=== PATIENT | female | born 1930 | race Caucasian/White ===

== ENCOUNTER 2017-09-18 21:44 | Emergency (ER) | payer MEDICARE, BC ==
[2017-09-18 22:40] LABS: #Basophils 0.1 thou/uL (0.0-0.2); #Eosinphils 0.2 thou/uL (0.0-0.7); #Lymphocytes 3.2 thou/uL (1.20-3.40); %Basophils 0.5 % (0.0-1.0); %Eosinophils 1.7 % (0.0-10.0); %Lymphocytes 30.7 % (21.0-51.0); %Monocytes 9.7 % (0.0-10.0); Hematocrit 34.8 % (36.0-47.0); Mean Platelet Volume 7.6 fL (7.4-10.4); Red Blood Cell (RBC) Count 3.49 mill/uL (4.20-5.40); White Blood Cell (WBC) Count 10.4 thou/uL (4.8-10.8)
[2017-09-18 22:47] LABS: Prothrombin Time 14.4 SEC (12.0-14.7)
[2017-09-18 22:55] LABS: Lactic Acid - Sepsis 1.1 mmol/L (0.5-2.2)
[2017-09-18 23:02] LABS: ALT (SGPT) 23 U/L (8-55); AST (SGOT) 21 U/L (5-34); Alkaline Phosphatase 105 U/L (40-150); Anion Gap 15 mmol/L (10-20); BUN (Urea Nitrogen) 27 mg/dL (9.8-20.1); Bilirubin, Total 0.3 mg/dL (0.2-1.2); Calc. Creatinine Clearance 0 mL/min (70-130); Calcium 9.1 mg/dL (7.8-10.44); Carbon Dioxide 23 mmol/L (23-31); Chloride 106 mmol/L (98-107); Estimated GFR-MDRD 38; Globulin 3.1 g/dL (2.4-3.5); Magnesium 2.1 mg/dL (1.6-2.6); Protein, Total 6.6 g/dL (6.0-8.3)
[2017-09-18 23:04] LABS: Troponin I 0.017 ng/mL (< 0.028)
--- NOTE | 2017-09-18 23:04 | CT ---
CT ABDOMEN AND PELVIS WITH CONTRAST STONE PROTOCOL: Date: 09/18/17 HISTORY: Gross hematuria. COMPARISON: None. FINDINGS: There are a few tree-in-bud opacities in the right middle lobe. No pericardial effusion. There is a calcified granuloma in hepatic segment 8. There is cholelithiasis. There appears to be a large mass along the dorsal posterior aspect of the urinary bladder. Forbes cath eter is in place. It is unclear if this is a mass or large clot. It measures 4.8 x 3.2 x 5.0 cm. Fole y catheter is in place. No hydronephrosis. 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 Distal ureteral evaluation is limited without contrast. Mild diverticular disease sigmoid colon without active inflammation. There are mild increased in number of left common iliac lymph nodes, although they are not increased in size per CT criteria. Moderate vascular calcifications of aorta. IMPRESSION: 1. Rather large mass or clot along the posterior wall of the urinary bladder measuring 4.8 x 3.2 x 5 .0 cm. Lack of IV contrast limits this evaluation. Direct visualization and urologic consultation rec ommended. 2. Cholelithiasis. 3. Tree-in-bud opacities right middle lobe concerning for pneumonia or aspiration. 4. 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 POS: [facility]
[2017-09-19 00:08] LABS: Bilirubin Negative (Negative); Blood, Urine Large (Negative); Glucose, Urine (Dipstick) Negative (Negative); Ketone, Urine Negative (Negative); Nitrite Negative (Negative); Protein, Urine (Dipstick) 100 mg/dL (Neg-Trace); Urobilinogen 0.2 mg/dL (0.2-1.0)
[2017-09-19 00:09] LABS: Bacteria/HPF 3+ HPF (None Seen); RBC/HPF GREATER THAN 50-TNTC HPF (0-3)
[2017-09-19 00:10] LABS: Hyaline Casts/LPF 0-3 HYALINE CAST LPF (0-3 Hyaline)
== END 2017-09-19 01:09 | disposition home or self-care (01) ==
LOC: ERS 21:44
DX: N32.89 Other specified disorders of bladder (principal); E03.9 Hypothyroidism, unspecified; E78.5 Hyperlipidemia, unspecified; I10 Essential (primary) hypertension; I25.10 Atherosclerotic heart disease of native coronary artery without angina pectoris
CPT/HCPCS: 36415; 74176; 82553; 83605; 83735; 84484; 87086

== ENCOUNTER 2017-10-07 08:02 | Outpatient (CLI) | payer MEDICARE, BC ==
[2017-10-07] MEDS ORDERED: Iopamidol 370 76% 100 ML VIAL ONE (09:00)
--- NOTE | 2017-10-07 10:51 | CT ---
ABDOMEN CT WITH AND WITHOUT CONTRAST PELVIC CT WITH AND WITHOUT CONTRAST: Date: 10/07/17 HISTORY: Gross hematuria. Possible bladder mass. COMPARISON: None. CORRELATION: Renal stone CT dated 09/18/17. TECHNIQUE: An abdomen and pelvis CT are performed with and without IV contrast. Coronal reformatted images are s ubmitted for interpretation. FINDINGS: ABDOMEN CT: Stable nodules and tree-in-bud opacities in the right middle lobe. Heart size is within normal limits . No significant pericardial fluid. The descending thoracic aorta and abdominal aorta have a normal c aliber. No periaortic fat stranding. Symmetric attenuation of the psoas muscles. CT evidence of cholelithiasis without CT evidence of cholecystitis. Note, there is abnormal enhanceme nt of the gallbladder wall with possible mucosal thickening. The possibility of a gallbladder wall ma ss cannot be excluded. Nonemergent gallbladder ultrasound is recommended. Calcified granulomas in the liver are noted. There are no hepatic masses. The spleen, pancreas, and a drenal glands have appropriate enhancement. No gastrohepatic, retrocrural, or periportal lymphadenopathy. No mesenteric mass, lymphadenopathy, free air, or free fluid. Limited evaluation of the alimentary canal due to lack of oral contrast. Multiple normal caliber smal l bowel loops. Ileocecal junction is normal. Normal caliber appendix. Fecal material in a nondistende d, nondilated colon. There is diverticulosis, without evidence of diverticulitis. Bilaterally, no hydronephrosis, nephrolithiasis, or perinephric fat stranding. Minimal scarring in th e left upper pole cortex. There is symmetric enhancement of the kidneys. Symmetric excretion of contr ast into the intra and extrarenal collecting system. 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 L eft and right ureters have an overall normal caliber. No hydroureter, periureteral fat stranding, or ureterolithiasis. On the delayed images, contrast partially opacifies the left and right ureters. PELVIC CT: No pelvic mass, lymphadenopathy, free air, or free fluid. Surgically absent uterus. Previously noted hyperdensity in the urinary bladder is not appreciated on the current exam, suggesti ng probable clot. There is mild mucosal thickening involving the right aspect of the urinary bladder. Cystoscopy is recommended. Small amount of contrast is noted in the dependent portion of the urinary bladder. There are no lytic or blastic lesion of the osseous structures. IMPRESSION: 1. No evidence of nephrolithiasis or obstructive uropathy. 2. Duplication of left renal pelvis. 3. No evidence of a mass in the urinary bladder. Previously noted hyperdensity likely represents blo od clot. There is mild mucosal thickening of the right aspect of the urinary bladder. Cystoscopy is r ecommended given patient's history. 4. Abnormal appearing gallbladder. Gallbladder ultrasound is recommended to exclude possible gallbla dder mass. CODE T. POS: [facility]
== END 2017-10-07 08:03 | disposition home or self-care (01) ==
LOC: SCSCT 08:02
PROVIDERS: ATTEND Urology
DX: N32.89 Other specified disorders of bladder (principal); R93.2 Abnormal findings on diagnostic imaging of liver and biliary tract
CPT/HCPCS: 74178

== ENCOUNTER 2017-10-27 11:51 | Outpatient (CLI) | payer MEDICARE, BC ==
[2017-10-27 13:35] LABS: Hematocrit 38.6 % (36.0-47.0); Mean Platelet Volume 8.2 fL (7.4-10.4); Red Blood Cell (RBC) Count 3.88 mill/uL (4.20-5.40)
[2017-10-27 13:47] LABS: PTT 29.7 SEC (22.9-36.1); Prothrombin Time 14.3 SEC (12.0-14.7)
[2017-10-27 13:50] LABS: Anion Gap 12 mmol/L (10-20); BUN (Urea Nitrogen) 26 mg/dL (9.8-20.1); Calc. Creatinine Clearance 0 mL/min (70-130); Calcium 10.3 mg/dL (7.8-10.44); Carbon Dioxide 29 mmol/L (23-31); Chloride 106 mmol/L (98-107); Estimated GFR-MDRD 52
[2017-10-27 13:57] LABS: Bilirubin Negative (Negative); Blood, Urine Small (Negative); Glucose, Urine (Dipstick) Negative (Negative); Ketone, Urine Negative (Negative); Nitrite Positive (Negative); Protein, Urine (Dipstick) Negative (Neg-Trace); Urobilinogen 0.2 mg/dL (0.2-1.0)
[2017-10-27 13:59] LABS: Bacteria/HPF Rare-Few HPF (None Seen); Hyaline Casts/LPF 0-3 HYALINE CAST LPF (0-3 Hyaline); Squamous Epithelial 0-3 HPF (0-3)
== END 2017-10-27 11:52 | disposition home or self-care (01) ==
LOC: LABBT 11:51
PROVIDERS: ATTEND Urology
DX: Z01.818 Encounter for other preprocedural examination (principal); N32.89 Other specified disorders of bladder
CPT/HCPCS: 80048; 81001; 85027; 85610; 85730; 87086

== ENCOUNTER 2017-11-03 09:24 | Day surgery (SDC) | payer MEDICARE, BC ==
[2017-10-27 12:14] VITALS: BMI 22.3
[2017-11-03] MEDS ORDERED: cefTRIAXone\\ROCEPHIN 1 GM, Syringe 0.4 ML in Sterile Water 9.6 ML SLOW IVP SCH (09:30)
[2017-11-03] MEDS ORDERED: Fentanyl 100 MCG/2 ML VIAL ONE (09:39)
--- NOTE | 2017-11-03 11:03 | OP ---
DATE OF SURGERY: 11/03/2017 SERVICE: Urology. SURGEON: Dr. Milan Saleh PREOPERATIVE DIAGNOSIS: Bladder lesions. POSTOPERATIVE DIAGNOSIS: Bladder lesions. PROCEDURE PERFORMED: Cystoscopy, bladder biopsies. INDICATIONS FOR PROCEDURE: Ms. Weaver is an 87-year-old white female who initially presented to me with gross hematuria. Cystoscopy demonstrated multiple small lesions within the bladder which was co ncerning for possible urothelial cancer. I had discussed options regarding her age including surveil adriana alone, hospice or bladder biopsies and she elected for bladder biopsies. Risks and benefits of the surgery were discussed and she agreed to proceed forward. DESCRIPTION OF PROCEDURE: After identification of armband and verification of consent, the patient w as brought back to the operating room where she underwent total intravenous anesthesia with anesthesi a monitoring. She was then placed in the dorsal lithotomy position and prepped and draped in the usu al sterile fashion. After appropriate timeout, a lubricated 22 Portuguese rigid cystoscope was introduce d per urethra into the bladder. A full cystoscopy was performed which demonstrated 5 lesions within the bladder. Each of these were biopsied at the posterior anterior right dome of the bladder, left l ateral and left anterior bladder sites. These were all sent for individual biopsies and each area fu lgurated to ensure that the entire lesion was removed and obliterated. Upon completion, repeat cysto scopy did not demonstrate any active bleeding even with the bladder partially decompressed. The cyst oscope was then removed after the bladder was emptied and the patient awakened and taken to PACU for recovery in stable condition. COMPLICATIONS: None. ESTIMATED BLOOD LOSS: Minimal. RETAINED TUBES AND DRAINS: None. SPECIMENS: Bladder biopsy x5. DISPOSITION: The patient will be discharged home and follow up with me in approximately a week for b iopsy results and postop check.
[2017-11-03] MEDS ORDERED: Phenazopyridine HCl 97.5 MG TABLET ONE (11:17)
[2017-11-03] MEDS ORDERED: PHENYLEPHRINE-NS 100 MCG/ML 10 ML SYRINGE ONE (13:33)
[2017-11-03] MEDS ORDERED: PROPOFOL 200 MG/20 ML VIAL ONE (13:33)
[2017-11-03] MEDS ORDERED: ePHEDrine/0.9% NaCl/PF SYRINGE 50 mg/10 ml ONE (13:33)
== END 2017-11-03 15:30 | disposition home or self-care (01) ==
LOC: SDC 09:24
PROVIDERS: ATTEND Urology
PROC: 0T5B8ZZ Destruction of Bladder, Via Natural or Artificial Opening Endoscopic (ICD-10-PCS; principal; 2017-11-03)
DX: N32.89 Other specified disorders of bladder (principal); N30.20 Other chronic cystitis without hematuria; I10 Essential (primary) hypertension; H40.9 Unspecified glaucoma; Z88.1 Allergy status to other antibiotic agents; Z79.82 Long term (current) use of aspirin; Z79.899 Other long term (current) drug therapy; Z90.89 Acquired absence of other organs; Z90.710 Acquired absence of both cervix and uterus; Z95.1 Presence of aortocoronary bypass graft
CPT/HCPCS: 51798; 52234; 88305; C1769; A4216; J0696; J2704; J3010

== ENCOUNTER 2017-11-05 10:34 | Emergency (ER) | payer MEDICARE, BC ==
[2017-11-05] MEDS ORDERED: Morphine 4 MG/ML VIAL ONE (11:57)
[2017-11-05] MEDS ORDERED: Ondansetron HCl/PF 4 MG/2 ML Vial ONE (12:07)
[2017-11-05 12:12] LABS: #Eosinphils 0.1 thou/uL (0.0-0.7); #Monocytes 0.7 thou/uL (0.11-0.59); #Neutrophils 7.2 thou/uL (1.40-6.50); %Basophils 0.4 % (0.0-1.0); %Eosinophils 0.8 % (0.0-10.0); %Lymphocytes 19.7 % (21.0-51.0); %Monocytes 6.5 % (0.0-10.0); %Neutrophils 72.5 % (42.0-75.0); Mean Corpuscular HGB CONC 33.5 g/dL (32.0-36.0); Mean Corpuscular Volume 98.6 fl (81.0-99.0); Mean Platelet Volume 8.1 fL (7.4-10.4); Platelet Count 229 thou/uL (130-400); RBC Distribution Width 12.3 % (11.5-14.5); Red Blood Cell (RBC) Count 3.63 mill/uL (4.20-5.40)
[2017-11-05 12:30] LABS: Anion Gap 14 mmol/L (10-20); BUN (Urea Nitrogen) 21 mg/dL (9.8-20.1); Calc. Creatinine Clearance 0 mL/min (70-130); Calcium 9.6 mg/dL (7.8-10.44); Carbon Dioxide 22 mmol/L (23-31); Chloride 105 mmol/L (98-107); Estimated GFR-MDRD 42; Glucose 140 mg/dL (83-110); Potassium 4.6 mmol/L (3.5-5.1); Sodium 136 mmol/L (136-145)
--- NOTE | 2017-11-05 13:19 | RAD ---
LEFT HUMERUS 2 VIEWS: INDICATION: Pain, fall, injury. FINDINGS: No fracture of the left humerus identified. There is osseous degenerative change of the imaged left shoulder and elbow. IMPRESSION: No acute fracture of the left humerus. POS: [facility]
--- NOTE | 2017-11-05 13:20 | RAD ---
FRONTAL VIEW CHEST: INDICATION: Fall with injury and pain. FINDINGS: The lungs are clear of consolidation. There is a slight degree of lateral blunting of the left costo phrenic sulcus. Cardiac silhouette is stable. No additional significant interval change. IMPRESSION: Grossly stable chest. POS: [facility]
[2017-11-05] MEDS ORDERED: Adacel (T-DAP) 0.5 ML VIAL ONE (13:23)
--- NOTE | 2017-11-05 13:37 | CT ---
CT HEAD WITHOUT CONTRAST: TECHNIQUE: Multiple axial tomograms were obtained through the head without IV enhancement. HISTORY: Ataxia. Comparison is made to a head CT dated 05/24/11. 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 This is unchanged in appearance. No evidence of acute infarct or hemorrhage. No mass effect. No interva l change noted. IMPRESSION: Stable findings from prior study with no evidence of acute process. POS: [facility]
--- NOTE | 2017-11-05 13:44 | CT ---
CT CERVICAL SPINE: TECHNIQUE: Multiple axial tomograms obtained through the cervical spine with multiplanar reconstruction. HISTORY: Fall with injury to neck. FINDINGS: Severe degenerative changes of the cervical spine noted. There is loss of disk space at C4-5, C5-6, and C6-7. There is anterior subluxation seen at C3-4. No evidence of acute fracture identified. 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 Foraminal stenosis is seen at multiple levels due to the degenerative change. IMPRESSION: Severe degenerative changes noted. 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 No evidence of acute fracture i dentified. POS: [facility]
--- NOTE | 2017-11-05 13:50 | CT ---
CT FACIAL BONES: TECHNIQUE: Multiple axial tomograms obtained through the facial bones with multiplanar reconstruction. HISTORY: Fall with injury to face. FINDINGS: Mild subcutaneous edema is seen over the right orbit and face. No hematoma identified. Nasal bones appear intact. Orbits appear intact. Zygoma are intact. Maxilla appears intact. 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 The mandible appears intact. IMPRESSION: No evidence of acute facial bone fracture. POS: [facility]
== END 2017-11-05 14:43 | disposition home or self-care (01) ==
LOC: ERS 10:34
DX: S01.111A Laceration without foreign body of right eyelid and periocular area, initial encounter (principal); M50.30 Other cervical disc degeneration, unspecified cervical region; E03.9 Hypothyroidism, unspecified; E78.5 Hyperlipidemia, unspecified; I10 Essential (primary) hypertension; R79.89 Other specified abnormal findings of blood chemistry; W18.30XA Fall on same level, unspecified, initial encounter
CPT/HCPCS: 12011; 36415; 70450; 70488; 71045; 72127; 80048; 84484; 85025; 90471; 90715; 93005; 96374; 96375; J2270; J2405

== ENCOUNTER 2017-11-24 18:19 | Inpatient (IN) | payer MEDICARE, BC ==
[~2017-11-24 18:19] MED LIST: ISOVUE-370 76%-LOCM 1 ML ONE
[2017-11-24] MEDS ORDERED: Morphine 4 MG/ML Carpuject ONE ×2 (18:47→20:27)
[2017-11-24] MEDS ORDERED: Ondansetron HCl/PF 4 MG/2 ML Vial ONE (18:52)
[2017-11-24 19:18] LABS: #Eosinphils 0.2 thou/uL (0.0-0.7); #Lymphocytes 2.7 thou/uL (1.20-3.40); #Monocytes 1.3 thou/uL (0.11-0.59); #Neutrophils 14.6 thou/uL (1.40-6.50); %Basophils 0.1 % (0.0-1.0); %Eosinophils 0.8 % (0.0-10.0); %Lymphocytes 14.2 % (21.0-51.0); %Monocytes 7.1 % (0.0-10.0); %Neutrophils 77.7 % (42.0-75.0); Hemoglobin 11.1 g/dL (12.0-16.0); Mean Corpuscular HGB CONC 33.4 g/dL (32.0-36.0); Mean Corpuscular Hemoglobin 32.6 pg (27.0-31.0); Mean Corpuscular Volume 97.8 fl (81.0-99.0); Mean Platelet Volume 7.8 fL (7.4-10.4); Platelet Count 252 thou/uL (130-400); RBC Distribution Width 12.4 % (11.5-14.5); Red Blood Cell (RBC) Count 3.42 mill/uL (4.20-5.40); White Blood Cell (WBC) Count 18.8 thou/uL (4.8-10.8)
[2017-11-24 19:34] LABS: PTT 29.4 SEC (22.9-36.1)
[2017-11-24 19:35] LABS: ALT (SGPT) 34 U/L (8-55); AST (SGOT) 31 U/L (5-34); Albumin 3.6 g/dL (3.4-4.8); Alkaline Phosphatase 78 U/L (40-150); Anion Gap 13 mmol/L (10-20); BUN (Urea Nitrogen) 26 mg/dL (9.8-20.1); Bilirubin, Total 0.3 mg/dL (0.2-1.2); CK (CPK) 118 U/L (29-168); Calc. Creatinine Clearance 0 mL/min (70-130); Calcium 9.4 mg/dL (7.8-10.44); Carbon Dioxide 23 mmol/L (23-31); Chloride 105 mmol/L (98-107); Estimated GFR-MDRD 45; Globulin 2.9 g/dL (2.4-3.5); Glucose 255 mg/dL (83-110); INR-International Normal Ratio 1.1; Lipase 16 U/L (8-78); Protein, Total 6.5 g/dL (6.0-8.3); Prothrombin Time 14.3 SEC (12.0-14.7); Sodium 137 mmol/L (136-145)
[2017-11-24 19:38] LABS: CKMB 3.7 ng/mL (0-6.6); Troponin I 0.018 ng/mL (< 0.028)
[2017-11-24 19:57] LABS: D-Dimer Test Greater than 20.00 *mcg/mL (0.27-0.43)
--- NOTE | 2017-11-24 20:03 | RAD ---
FRONTAL PELVIS RADIOGRAPH 11/24/17 PROVIDED CLINICAL HISTORY: Hip pain status post injury. FINDINGS: There is a displaced and angulated fracture of the intertrochanteric region of the right proximal fem ur. No additional fracture is evident. Vascular calcifications are seen. Degenerative changes involve the lower lumbar spine. Hip joint spaces appear preserved. Alignment appears otherwise anatomic. IMPRESSION: Comminuted, displaced intertrochanteric right proximal femoral fracture. POS: [facility]
--- NOTE | 2017-11-24 20:06 | RAD ---
PORTABLE CHEST 11/24/17 PROVIDED CLINICAL HISTORY: Syncope. FINDINGS: Comparison 11/05/17. The cardiac and mediastinal silhouette is within normal limits. Median sternotomy changes are noted. No focal consolidation evident. The supine nature of the study limits sensitivity for the detection o f pleural fluid and pneumothorax without gross evidence for such. Remote left sided rib fracture is s een. IMPRESSION: No evidence for an acute cardiopulmonary process with limitations as above. POS: [facility]
[2017-11-24] MEDS ORDERED: Bisacodyl 10 MG SUPP PR PRN (20:22)
[2017-11-24] MEDS ORDERED: traMADol HCl 50 MG TAB PO PRN (20:22)
[2017-11-24] MEDS ORDERED: Fleet Enema 133 ML BOT PR PRN (20:22)
[2017-11-24] MEDS ORDERED: Milk Of Magnesia 30 ML UDCUP PO PRN (20:22)
[2017-11-24] MEDS ORDERED: Dextrose 50% Abboject 50 ML SYRINGE SLOW IVP PRN (20:22)
[2017-11-24] MEDS ORDERED: Dextrose 5% in Water 1,000 ML IV SCH (20:30)
--- NOTE | 2017-11-24 20:56 | RAD ---
RIGHT HIP RADIOGRAPHS TWO VIEWS 11/24/17 PROVIDED CLINICAL HISTORY: Right hip pain status post injury. FINDINGS: There is a comminuted intertrochanteric right proximal femoral fracture with fracture fragment overri ding apex lateral angulation at the fracture site. No additional fracture is evident. Vascular calcif ications are seen. Degenerative changes involve the lumbar spine. The right hip joint space appears m aintained. IMPRESSION: Comminuted displaced right proximal femoral intertrochanteric fracture. POS: [facility]
--- NOTE | 2017-11-24 21:24 | CT ---
CT BRAIN 11/24/17 PROVIDED CLINICAL HISTORY: Syncope. FINDINGS: Comparison 11/05/17. The ventricular system is unchanged in size and morphology. There is no evidence for intracranial hem orrhage or mass effect. Encephalomalacia in the right occipital region is unchanged as compared with prior. The extracranial soft tissues and osseous structures demonstrate no acute findings. IMPRESSION: No evidence for intracranial hemorrhage or mass effect. POS: [facility]
--- NOTE | 2017-11-24 21:37 | HP ---
ATTENDING PHYSICIAN: Dr. Mckinney. CONSULTING PHYSICIAN: Dr. Mendoza. CHIEF COMPLAINT: Evaluation status post fall. HISTORY OF PRESENT ILLNESS: This is an 87-year-old female with presentation of fall. Patient report ed that she fell after she was bent over getting some potatoes turned around to go to the washroom an d then fell. That was the last thing she does recall. She does hit her head on the draw. She does report right hip and right lower extremity pain. She denied any chest pain, headache, dizziness, elliot rtness of breath prior to the fall and/or after the fall. She denies any fevers or chills recently. PAST MEDICAL HISTORY: Includes significant for coronary artery disease, hypertension, hypothyroidism , hyperlipidemia. PAST SURGICAL HISTORY: Includes coronary artery bypass 17 years ago, tonsillectomy, hysterectomy, in and then recently in October, had a bladder surgery of some sort, they were unable to describe. No psychiatric history. SOCIAL HISTORY: Denies any alcohol use, drug use or smoking history or tobacco use. She does live a t home with family. CURRENT MEDICATIONS: Coreg 12.5 two tabs p.o. every day, diclofenac 75 mg p.o. b.i.d., aspirin 325 p .o. daily, lisinopril HCTZ 20/25 mg 1 tab b.i.d., Pravachol 40 mg p.o. at bedtime, Tirosint 1 tab p.o . every day 112 mcg, vitamin C and E daily, Levofloxacin 750 p.o. daily, MiraLax 17 grams at bedtime by mouth. ALLERGIES: No known drug allergies. REVIEW OF SYSTEMS: All 10 systems were reviewed otherwise stated in HPI were negative. PHYSICAL EXAMINATION: VITAL SIGNS: At this time, blood pressure 122/64, heart rate of 53, respiratory rate 18, temperature 97.7, O2 sat of 99% on room air. EKG shows sinus bradycardia. GENERAL: No acute distress at this time. Atraumatic, normocephalic. HEENT: Pupils are equal, round, reactive to light. No JVD, no masses. Trachea is midline. She stauffer s have some periorbital ecchymosis on the right eye. RESPIRATORY: Clear bilaterally via auscultation. CARDIOVASCULAR: S1, S2, regular rate and rhythm. ABDOMEN: Soft, nontender, nondistended. Pelvis tender on the right side than the left. Positive pu lses bilaterally. No edema noted. Good cap refill. She is able to move lower extremities, left gre ater than right secondary to pain. ASSESSMENT: 1. Status post fall. 2. Possible syncopal episode. 3. Right intertrochanteric fracture. 4. Acute traumatic pain. The plan will be admission to the surgical floor well consultation for Ort hopedics also, possibly consultation for Cardiology, for workup of possible syncopal episode. Her ca rdiologist is Dr. Dumont. We will optimize her pain management and IV and p.o. analgesics. She will h ave gastritis DVT prophylaxis when appropriate. Continue IV fluids, n.p.o. after midnight. We will discuss surgical options tomorrow with orthopedics as well as surgical optimization for Cardiology. The above patient was discussed with Dr. Mckinney at the time of dictation and agrees with the above pl an.
[2017-11-24 21:49] LABS: Bilirubin Negative (Negative); Blood, Urine Negative (Negative); Clarity CLEAR (Clear); Glucose, Urine (Dipstick) Negative (Negative); Leukocyte Small (Negative); Nitrite Negative (Negative); Protein, Urine (Dipstick) Negative (Neg-Trace); Specific Gravity, Urine 1.015 (1.002-1.036); Urobilinogen 0.2 mg/dL (0.2-1.0); pH, Urine 6.5 (5.0-9.0)
[2017-11-24 21:50] LABS: Bacteria/HPF None Seen HPF (None Seen); Hyaline Casts/LPF 0-3 HYALINE CAST LPF (0-3 Hyaline); Pathc Cast-AUWi Flag 0.54 (0-2.49); RBC/HPF 0-3 HPF (0-3); Squamous Epithelial 0-3 HPF (0-3)
--- NOTE | 2017-11-24 22:11 | CT ---
CT PULMONARY ANGIOGRAM WITH IV CONTRAST AND 3D MIP RECONSTRUCTIONS 11/24/17 PROVIDED CLINICAL HISTORY: Syncope. FINDINGS: Comparison 07/11/14. There is no evidence for central or segmental pulmonary embolus. Median sternotomy changes and vascul ar calcifications are again seen. Lungs appear free of significant opacity. No pleural fluid or pneum othorax apparent. The airway appears patent and of normal caliber. The visualized portions of the upp er abdomen demonstrate no acute findings. Gallstones are noted. The osseous structures demonstrate no concerning osteoblastic or osteolytic lesions. IMPRESSION: No evidence for central or segmental pulmonary embolus. POS: [facility]
[2017-11-24] MEDS ORDERED: Morphine 5 MG/ML SYRINGE SLOW IVP PRN ×2 (22:18)
[2017-11-24] MEDS: D5 0.9% NS w/ 20 mEq KCl 1,000 ML IV SCH (22:23)
[2017-11-24] MEDS ORDERED: hydrALAZINE 20 MG/ML VIAL SLOW IVP PRN (22:43)
[2017-11-24 22:51] VITALS: BMI 23.5
[2017-11-25] MEDS: Acetaminophen 1,000 MG in Premix Bag 1 BAG IVPB SCH ×5 (00:29→23:52)
[2017-11-25] MEDS: Levothyroxine Sodium 112 MCG TAB PO SCH (06:00)
[2017-11-25] MEDS: Carvedilol 6.25 MG TAB PO SCH ×2 (06:00→20:38)
[2017-11-25] MEDS: Insulin Regular 300 UNITS/3 ML VIAL SC PRN ×3 (06:37→20:43)
--- NOTE | 2017-11-25 08:27 | CON ---
DATE OF CONSULTATION: 11/25/2017 HISTORY OF PRESENT ILLNESS: We were asked to see the patient by Trauma in the emergency room. The nani morrell is a fairly healthy 87-year-old female who was brought into the emergency room secondary to fa ll. She denies any loss of consciousness. She states she was out in her potato patch, getting some potatoes for dinner. She is not sure if she josephine up too quick, turn around stumbled her way, but she fell and was unable to walk. She did hit her head on the right side and has a black eye, but no vis ual changes. She does have some chronic numbness and tingling in her hands and feet that has been wo rked up, but unsure what the cause of this is. Denies headache, dizziness, shortness of breath, any chest pain. No other complaints other than the right hip pain. PAST MEDICAL HISTORY: Positive for coronary artery disease, hypertension, hypothyroidism, hyperlipid emia. PAST SURGICAL HISTORY: Bypass in 1998, tonsils, hysterectomy, had a bladder surgery 3 weeks ago. PSYCHIATRIC HISTORY: Denies any depression or any other problems. SOCIAL HISTORY: Lives at home with her 2 sons. No alcohol or nicotine use. MEDICATIONS: Aspirin, MiraLax, Ocuvite Lutein, carvedilol, diclofenac, levothyroxine, lisinopril, hy drochlorothiazide, pravastatin. ALLERGIES: LEVOFLOXACIN. REVIEW OF SYSTEMS: Denies any chest pain or shortness of breath. No bowel or bladder issues or comp laints at this time. Her only major complaint currently is numbness and tingling to the hands and fe et and right hip pain. Rest of review of systems is negative. PHYSICAL EXAMINATION: GENERAL: Well-nourished, pleasant female, son is at bedside. Speech clear, fluent, oriented x3. HEENT: Normal exam. Face is symmetric. She does have a black eye on the right side, but vision is intact. NECK: Supple, trachea midline. EXTREMITIES: Upper extremities, she moves both of these well. Normal bulk and tone. There are mult iple areas of bruising, which the patient states is normal. Right lower extremity has some tendernes s to palpation over the right hip and over groin, and some swelling, but overall not miserable pain a s long as we do not move her. Right lower extremity is little bit shortened. Left lower extremity, moving well. ASSESSMENT: Right intertrochanteric fracture. PLAN: I spoke with patient and son if we can get her cleared from a Trauma and Cardiovascular standp oint, we will get her surgery done. We will plan on doing a TFN and the procedure has been explained to the patient. All the risks and benefits have been discussed and the patient and son are amenable to go forth with surgery. She will probably need some case management for some postoperative home c are versus rehab or skilled, we will get that set up. The patient's and son's questions have been an swered and trying to get that surgery set up for today. This is Roc Julio PA-C dictating for Dr. Saran Mendoza.
[2017-11-25] MEDS ORDERED: CEFAZOLIN/Water 2 GM/20 ML SYRINGE ONE (09:25)
[2017-11-25] MEDS ORDERED: Fentanyl 100 MCG/2 ML VIAL ONE (09:38)
[2017-11-25] MEDS ORDERED: Ondansetron HCl/PF 4 MG/2 ML Vial ONE ×3 (09:39→14:17)
[2017-11-25] MEDS ORDERED: ePHEDrine/0.9% NaCl/PF SYRINGE 50 mg/10 ml ONE ×2 (10:19→14:17)
[2017-11-25] MEDS ORDERED: Meperidine HCl/PF 25 MG/ML VIAL SLOW IVP PRN (10:20)
[2017-11-25] MEDS ORDERED: HYDROmorphone 2 MG/ML VIAL SLOW IVP PRN (10:20)
[2017-11-25] MEDS ORDERED: Promethazine HCl 25 MG/ML VIAL IM/IV PRN (10:20)
[2017-11-25] MEDS ORDERED: Ondansetron HCl/PF 4 MG/2 ML Vial IVP PRN (10:20)
[2017-11-25] MEDS: Lisinopril/Hydrochlorothiazide 20/25 mg Tablet PO SCH ×2 (11:33→20:38)
[2017-11-25] MEDS: D5 0.9% NS w/ 20 mEq KCl 1,000 ML IV SCH ×2 (11:34→15:14)
--- NOTE | 2017-11-25 12:04 | OP ---
DATE OF PROCEDURE: 11/25/2017 OPERATION: Right femur intramedullary nail. PREOPERATIVE DIAGNOSIS: Right intertrochanteric femur fracture. POSTOPERATIVE DIAGNOSIS: Right intertrochanteric femur fracture. COMPLICATIONS: None. ESTIMATED BLOOD LOSS: 100 mL. SURGEON: Vinny Epstein M.D. PRESIDENTIAL SUPPORT SPECIALIST: Kendall Fenton PA-C. IMPLANTS: A Synthes short trochanteric nail size 11 mm. INDICATIONS: Ms. Weaver is an 87-year-old female who fell. She sustained a fracture of the right p roximal femur. She was indicated for intramedullary nail fixation to restore anatomic alignment and promote healing. Risks were reviewed. She elected to proceed with the operation. The goal of surge ry is to promote early mobilization. DESCRIPTION OF PROCEDURE: Ms. Weaver was identified in the preoperative holding area. Her correct extremity was marked. She was carried to the operating room. She was positioned supine. General an esthesia was induced. Intravenous antibiotics were administered. We performed a multidisciplinary t polo out. The right lower extremity was prepped and draped in sterile fashion. At this point, we intraoperatively evaluated the femur with x-ray. We obtained an anatomic reduction by rotating and pulling traction on the femur. At this point, we inserted a guidewire at the tip of the trochanter proximally. We imaged this with x-ray. We then over reamed the guidewire. At this point, we placed a ball tip guidewire and then overreamed the shaft distally with an 11.5 mm reamer. We then inserted our 11 mm trochanteric nail. At this point, we placed a helical blade in the cente r-center position of the femoral head. We then placed a distal cross lock screw using our guide. We took final images. We thoroughly irrigated with copious lavage. We then closed with 0 Vicryl sutur e, 2-0 Vicryl suture and reece for the skin. A sterile dressing was applied at this point. The kimberley clayton was taken to the recovery room without complication.
--- NOTE | 2017-11-25 12:25 | RAD ---
RIGHT HIP 2 VIEWS: Date: 11/25/17 HISTORY: 87-year-old female status post right hip nail surgery. FINDINGS: Three portable fluoroscopic spot views are presented for interpretation. Right hip nail placed with i ntramedullary component, with considerable improvement in position and alignment from the prereductio n study of 11/24/17. IMPRESSION: Right hip nail placed stabilizing comminuted intertrochanteric and subtrochanteric fracture of the ri ght femur with marked improvement in position and alignment. POS: [facility]
[2017-11-25] MEDS ORDERED: Ketorolac Tromethamine 30 MG/ML VIAL ONE (14:17)
[2017-11-25] MEDS ORDERED: Succinylcholine Chloride 20 MG/ML 10 ml SYRINGE FS ONE (14:17)
[2017-11-25] MEDS ORDERED: Dexamethasone 20 MG/5 ML VIAL ONE (14:17)
[2017-11-25] MEDS ORDERED: Propofol 200 MG/20 ML VIAL ONE (14:17)
[2017-11-25] MEDS ORDERED: Lidocaine 1% PF 5 ML VIAL ONE (14:17)
[2017-11-25] MEDS ORDERED: PHENYLEPHRINE-NS 100 MCG/ML 10 ML SYRINGE ONE (14:17)
[2017-11-25] MEDS: traMADol HCl 50 MG TAB PO PRN (15:04)
[2017-11-25] MEDS: CEFAZOLIN/Water 2 GM/20 ML SYRINGE SLOW IVP SCH (18:49)
--- NOTE | 2017-11-25 18:59 | PRG-2 ---
DATE OF SERVICE: 11/25/2017 SUBJECTIVE: The patient is an 87-year-old lady who had a ground level fall last night. She was brou ght to the hospital, where a right femur fracture was identified. She underwent right femur intramed ullary nail today. She is now seen on the surgical floor postoperatively. She states pain is well c ontrolled. She has no complaints at this time. OBJECTIVE: VITAL SIGNS: Temperature 98.2, pulse 68, blood pressure 103/56, respirations 19 and O2 sat 98%. GENERAL: Elderly female in no acute distress. HEENT: Periorbital ecchymosis, right. PULMONARY: Bilateral breath sounds clear. Respirations even unlabored. CARDIOVASCULAR: Regular rate and rhythm. ABDOMEN: Soft, nontender and nondistended. EXTREMITIES: Right hip surgical dressing in place. Clean, dry and intact. Moves all extremities. Cap refill brisk. Neurovascularly intact. NEUROLOGIC: GCS of 15. Awake, alert, oriented x3. ASSESSMENT: 1. Status post ground level fall. 2. Right intertrochanteric femur fracture. 3. Status post ORIF of right intertrochanteric femur fracture. PLAN: 1. Continue antibiotics as ordered by Orthopedic Surgery. 2. Regular diet. 3. Lovenox for DVT prophylaxis. 4. Scheduled IV Tylenol, plus oral analgesia plus morphine for breakthrough pain tonight. 5. PT, OT evaluation. 6. Case management for discharge planning. The patient was seen and examined with Dr. Honeycutt who agr ees with the assessment and plan.
[2017-11-25] MEDS ORDERED: Sodium Chloride 0.9% 500 ML IV SCH (20:00)
--- NOTE | 2017-11-25 20:25 | PRG ---
DATE OF SERVICE: 11/25/2017 SUBJECTIVE: This is an 87-year-old female status post fall, postoperative day #0 from ORIF of the ri ght hip. No other complaints at this time. Pain is controlled. OBJECTIVE: VITAL SIGNS: Stable and reviewed. Physical exam is unchanged from this morning's exam. ASSESSMENT AND PLAN: 87-year-old female status post open reduction internal fixation of the right hi p. Continue care plan as stated in the daily progress note. Continue to monitor. Discharge disposi tion pending.
[2017-11-25] MEDS: Pravastatin Sodium 40 MG TAB PO SCH (20:49)
[2017-11-25] MEDS ORDERED: Diclofenac Sodium 25 mg Tablet PO SCH (23:00)
[2017-11-26] MEDS: CEFAZOLIN/Water 2 GM/20 ML SYRINGE SLOW IVP SCH ×3 (01:57→17:36)
[2017-11-26 04:59] LABS: Anion Gap 12 mmol/L (10-20); BUN (Urea Nitrogen) 30 mg/dL (9.8-20.1); Calc. Creatinine Clearance 30 mL/min (70-130); Calcium 8.1 mg/dL (7.8-10.44); Carbon Dioxide 24 mmol/L (23-31); Chloride 109 mmol/L (98-107); Estimated GFR-MDRD 41; Glucose 132 mg/dL (83-110); Phosphorus 3.4 mg/dL (2.3-4.7); Potassium 4.9 mmol/L (3.5-5.1); Sodium 140 mmol/L (136-145)
[2017-11-26] MEDS: Levothyroxine Sodium 112 MCG TAB PO SCH (05:14)
[2017-11-26 05:52] LABS: Hemoglobin 6.6 g/dL (12.0-16.0); Mean Corpuscular HGB CONC 33.1 g/dL (32.0-36.0); Mean Corpuscular Hemoglobin 33.3 pg (27.0-31.0); Mean Platelet Volume 7.6 fL (7.4-10.4); Platelet Count 149 thou/uL (130-400); RBC Distribution Width 12.9 % (11.5-14.5); Red Blood Cell (RBC) Count 1.99 mill/uL (4.20-5.40); White Blood Cell (WBC) Count 16.9 thou/uL (4.8-10.8)
[2017-11-26 06:33] LABS: Band 4 % (5-11); Lymphocytes 18 % (21-51); MDiff Complete? YES; Macrocytosis SLIGHT = 6-15 cells (100X) (0-5/hpf); Metamyelocyte 3 % (0-0); Monocytes 9 % (0-10); Neutrophil 66 % (42-75); PLT Morphology Comment Appears Adequate; Polychromasia SLIGHT = 2-3 cells (100X) (0-2/hpf)
[2017-11-26] MEDS: Insulin Regular 300 UNITS/3 ML VIAL SC PRN ×3 (06:39→21:21)
[2017-11-26 07:01] LABS: Hemoglobin 6.7 g/dL (12.0-16.0); Platelet Count 157 thou/uL (130-400)
--- NOTE | 2017-11-26 09:51 | ULT ---
BILATERAL LOWER EXTREMITY VENOUS DOPPLER: Date: 11/26/17 HISTORY: Elevated D-Dimer. COMPARISON: None. FINDINGS: Real-time Hernandez scale and color Doppler with spectral analysis of the bilateral lower extremity venous system was performed. Bilateral common femoral, femoral, proximal portions of greater saphenous and deep femoral veins, as well as the popliteal and posterior tibial veins were interrogated. Normal flow, augmentation, and compression. No deep venous thrombosis. IMPRESSION: No deep venous thrombosis. POS: [facility]
[2017-11-26] MEDS: Diclofenac Sodium 25 mg Tablet PO SCH ×3 (10:04→20:07)
[2017-11-26] MEDS: Lisinopril/Hydrochlorothiazide 20/25 mg Tablet PO SCH ×3 (10:45→20:09)
[2017-11-26] MEDS: Carvedilol 6.25 MG TAB PO SCH ×3 (10:45→20:07)
[2017-11-26] MEDS: Acetaminophen 500 MG TAB PO SCH ×4 (12:45→23:29)
--- NOTE | 2017-11-26 13:52 | PRG ---
DATE OF SERVICE: 11/26/2017 ATTENDING PHYSICIAN: Jose Honeycutt DO. SUBJECTIVE: The patient is an 87-year-old lady status post ground level fall. She is postoperative day #1 status post right femur intramedullary nail. This morning, she was noted to have decreased he moglobin. Hemoglobin had dropped from 11.1 to 6.6 postoperatively. She has no complaints of pain. She will be transfused 1 unit PRBCs today. OBJECTIVE: VITAL SIGNS: Temperature 98.3, pulse 80, blood pressure 117/51, respirations 18, O2 sat 97% room air . GENERAL: Elderly female, in no acute distress. HEENT: Periorbital ecchymosis, right. PULMONARY: Bilateral breath sounds clear. RESPIRATORY: Even unlabored. CARDIOVASCULAR: Regular rate and rhythm. Heart sounds normal. ABDOMEN: Soft, nontender, nondistended. Bowel sounds normal. EXTREMITIES: Right hip surgical dressing in place, clean, dry and intact. Moves all extremities. C ap refill brisk. Neurovascularly intact. NEUROLOGIC: GCS 15. Awake, alert, and oriented x3. ASSESSMENT: 1. Status post ground level fall. 2. Right intertrochanteric femur fracture. 3. Status post open reduction internal fixation right intertrochanteric femur fracture. 4. Acute blood loss anemia, postoperative. PLAN: 1. Continue antibiotics as ordered by Orthopedic Surgery. 2. Transfuse 1 unit PRBCs today. 3. D-dimer elevated on admission. CTA PE negative. Bilateral lower extremity duplex study is negat oswaldo. 4. Transition to oral Tylenol. 5. PT/OT evaluation and treatment. 6. Case management for discharge planning. The patient was reviewed with Dr. Honeycutt, who agrees with the assessment and plan.
--- NOTE | 2017-11-26 15:15 | EKG ---
Test Reason : FALL Blood Pressure : / mmHG Vent. Rate : 050 BPM Atrial Rate : 050 BPM P-R Int : 208 ms QRS Dur : 084 ms QT Int : 480 ms P-R-T Axes : 114 001 058 degrees QTc Int : 437 ms Sinus bradycardia Otherwise normal ECG Confirmed by JYOTSNA WELSH, KRYSTINA ([id number]), commissioning editor LEXUS SEALS ([id number]) on 11/26/2017 3:15:00 PM Referred By: JYOTSNA Confirmed By:KRYSTINA GOYAL MD
[2017-11-26] MEDS: traMADol HCl 50 MG TAB PO PRN (15:36)
[2017-11-26] MEDS: Morphine 2 MG/ML SYRINGE SLOW IVP PRN (20:06)
[2017-11-26] MEDS: Enoxaparin Sodium 40 MG/0.4 ML SYRINGE SC SCH (20:06)
[2017-11-26] MEDS: Pravastatin Sodium 40 MG TAB PO SCH (20:07)
--- NOTE | 2017-11-26 21:07 | PRG ---
DATE OF SERVICE: 11/26/2017 SUBJECTIVE: This is an 87-year-old female status post fall postop day #1 from ORIF of hip. She init ially had no new complaints. The pain is controlled. She is doing well. OBJECTIVE: VITAL SIGNS: The patient is stable. Physical exam is unchanged from this morning. ASSESSMENT AND PLAN: An 87-year-old female. Continue plan as documented in daily progress note. Co ntinue to monitor. Discharge pending is pending.
[2017-11-27] MEDS: Morphine 2 MG/ML SYRINGE SLOW IVP PRN (01:23)
[2017-11-27] MEDS: CEFAZOLIN/Water 2 GM/20 ML SYRINGE SLOW IVP SCH ×2 (01:23→09:47)
[2017-11-27 04:20] LABS: #Lymphocytes 2.9 thou/uL (1.20-3.40); #Monocytes 1.5 thou/uL (0.11-0.59); #Neutrophils 7.4 thou/uL (1.40-6.50); %Basophils 0.1 % (0.0-1.0); %Eosinophils 0.3 % (0.0-10.0); %Lymphocytes 24.2 % (21.0-51.0); %Monocytes 12.8 % (0.0-10.0); %Neutrophils 62.6 % (42.0-75.0); Hemoglobin 7.3 g/dL (12.0-16.0); Mean Corpuscular HGB CONC 33.8 g/dL (32.0-36.0); Mean Corpuscular Hemoglobin 32.8 pg (27.0-31.0); Mean Corpuscular Volume 97.2 fl (81.0-99.0); Mean Platelet Volume 8.7 fL (7.4-10.4); Platelet Count 115 thou/uL (130-400); RBC Distribution Width 13.5 % (11.5-14.5); Red Blood Cell (RBC) Count 2.23 mill/uL (4.20-5.40); White Blood Cell (WBC) Count 11.8 thou/uL (4.8-10.8)
[2017-11-27 04:35] LABS: Anion Gap 10 mmol/L (10-20); BUN (Urea Nitrogen) 29 mg/dL (9.8-20.1); Calc. Creatinine Clearance 40 mL/min (70-130); Calcium 7.7 mg/dL (7.8-10.44); Carbon Dioxide 25 mmol/L (23-31); Chloride 108 mmol/L (98-107); Estimated GFR-MDRD 57; Glucose 102 mg/dL (83-110); Magnesium 1.8 mg/dL (1.6-2.6); Phosphorus 2.8 mg/dL (2.3-4.7); Potassium 4.2 mmol/L (3.5-5.1); Sodium 139 mmol/L (136-145)
[2017-11-27] MEDS: Acetaminophen 500 MG TAB PO SCH ×3 (05:59→18:40)
[2017-11-27] MEDS: Levothyroxine Sodium 112 MCG TAB PO SCH (06:00)
[2017-11-27] MEDS: Diclofenac Sodium 25 mg Tablet PO SCH ×2 (08:31→22:11)
[2017-11-27] MEDS: Carvedilol 6.25 MG TAB PO SCH ×2 (08:32→22:11)
[2017-11-27] MEDS: Lisinopril/Hydrochlorothiazide 20/25 mg Tablet PO SCH ×2 (09:29→22:11)
[2017-11-27] MEDS: Insulin Regular 300 UNITS/3 ML VIAL SC PRN ×2 (11:34→16:45)
--- NOTE | 2017-11-27 16:53 | PRG ---
DATE OF SERVICE: 11/27/2017 ATTENDING PHYSICIAN: Jose Honeycutt D.O. SUBJECTIVE: The patient is an 87-year-old lady status post ground level fall. She is postoperative day #2 status post right femur intramedullary nail. She received 1 unit of PRBCs yesterday for a niko p in her hemoglobin. This morning, her hemoglobin is 7.3 up from 6.7 yesterday. She has no complain ts of pain. OBJECTIVE: VITAL SIGNS: Temperature 98.0, pulse 65, respirations 20, O2 sat 98% on room air, blood pressure 122 /48. GENERAL: Elderly female sitting up in a chair, in no acute distress. HEENT: Right periorbital ecchymosis. PULMONARY: Bilateral breath sounds clear. No respiratory distress. CARDIOVASCULAR: Regular rate and rhythm. Heart sounds normal. ABDOMEN: Soft, nontender, nondistended. Bowel sounds normal. EXTREMITIES: Right hip surgical dressing in place. Clean, dry, and intact. Moves all extremities. Cap refill brisk. Neurovascularly intact. NEUROLOGIC: GCS of 15. Awake, alert, oriented x3. ASSESSMENT: 1. Status post ground level fall. 2. Right intertrochanteric femur fracture. 3. Status post open reduction and internal fixation of right intertrochanteric femur fracture. 4. Acute blood loss anemia, postoperative. PLAN: 1. Continue antibiotics as ordered by Orthopedic Surgery. 2. Begin iron, vitamin C daily. 3. Monitor H and H and transfuse as indicated. 4. Continue PT, OT evaluation and treatment. 5. Case management for discharge planning. Anticipate patient will be discharged to care home facility or inpatient rehabilitation. The patient was reviewed with Dr. Honeycutt who agrees with above plan and treatment.
[2017-11-27] MEDS: Ferrous Sulfate 325 MG TAB PO SCH (17:02)
[2017-11-27] MEDS: Pravastatin Sodium 40 MG TAB PO SCH (22:10)
[2017-11-27] MEDS: traMADol HCl 50 MG TAB PO PRN (22:10)
[2017-11-27] MEDS: Enoxaparin Sodium 40 MG/0.4 ML SYRINGE SC SCH (22:12)
--- NOTE | 2017-11-27 23:04 | PRG ---
DATE OF SERVICE: 11/27/2017 SUBJECTIVE: This is an 87-year-old female status post fall postop day #2 from ORIF of hip. She init ially had no new complaints. Patient's pain is well controlled. She is doing well. We will continu e to monitor hemoglobin. OBJECTIVE: VITAL SIGNS: At this time, stable and reviewed. Physical exam unremarkable. ASSESSMENT AND PLAN: Continue care plans as noted in the daily progress note. Continue to monitor. Continue care plan, discharge disposition is pending.
[2017-11-28] MEDS: Acetaminophen 500 MG TAB PO SCH ×4 (00:04→17:54)
[2017-11-28] MEDS: Levothyroxine Sodium 112 MCG TAB PO SCH (07:01)
[2017-11-28 07:25] LABS: Hemoglobin 7.3 g/dL (12.0-16.0); Mean Corpuscular Hemoglobin 32.7 pg (27.0-31.0); Mean Corpuscular Volume 99.2 fl (81.0-99.0); Mean Platelet Volume 8.1 fL (7.4-10.4); Platelet Count 139 thou/uL (130-400); RBC Distribution Width 13.3 % (11.5-14.5); Red Blood Cell (RBC) Count 2.22 mill/uL (4.20-5.40); White Blood Cell (WBC) Count 10.9 thou/uL (4.8-10.8)
[2017-11-28 07:42] LABS: Anion Gap 10 mmol/L (10-20); BUN (Urea Nitrogen) 35 mg/dL (9.8-20.1); Calc. Creatinine Clearance 33 mL/min (70-130); Carbon Dioxide 24 mmol/L (23-31); Chloride 108 mmol/L (98-107); Estimated GFR-MDRD 45; Glucose 97 mg/dL (83-110); Magnesium 1.9 mg/dL (1.6-2.6); Phosphorus 2.8 mg/dL (2.3-4.7); Sodium 138 mmol/L (136-145)
[2017-11-28 07:55] LABS: Band 12 % (5-11); Eosinophils 1 % (0-10); Lymphocytes 23 % (21-51); MDiff Complete? YES; Monocytes 11 % (0-10); Neutrophil 53 % (42-75); PLT Morphology Comment Appears Adequate; Polychromasia SLIGHT = 2-3 cells (100X) (0-2/hpf)
[2017-11-28] MEDS: Ferrous Sulfate 325 MG TAB PO SCH ×2 (08:27→17:54)
[2017-11-28] MEDS: Carvedilol 6.25 MG TAB PO SCH (08:27)
[2017-11-28] MEDS: Lisinopril/Hydrochlorothiazide 20/25 mg Tablet PO SCH (08:28)
[2017-11-28] MEDS: Diclofenac Sodium 25 mg Tablet PO SCH (08:28)
[2017-11-28] MEDS ORDERED: Ascorbic Acid 500 mg Chewable Tablet PO SCH (09:00)
[2017-11-28 17:22] VITALS: BP 118/57; TEMP 97.5
--- NOTE | 2017-11-29 01:08 | DIS ---
DATE OF ADMISSION: 11/24/2017 DATE OF DISCHARGE: 11/28/2017 ADMITTING PHYSICIAN: Dr. Mckinney DISCHARGING PHYSICIAN: Dr. Honeycutt. CONSULTING PHYSICIAN: Dr. Mendoza. REASON FOR HOSPITALIZATION: Ground level fall with right hip pain. HOSPITAL DIAGNOSIS: Right intertrochanteric hip fracture. PROCEDURES PERFORMED: Right femur intramedullary nail. DATE OF PROCEDURE: 11/25/2017 OPERATING SURGEON: Dr. Vinny Epstein. CONDITION ON DISCHARGE: To [facility]. BRIEF HISTORY OF HOSPITALIZATION: The patient is an 87-year-old female who was brought to the [facility] Emergency Room secondary to fall. She denied any loss of consciousness. Workup in the ED ident ified a right hip fracture. She was admitted to the hospital by Trauma services. She was then taken to the OR for fixation of her fracture by Orthopedics. She was then returned to the surgical floor where she began working with PT, OT. She did have some postoperative blood loss anemia requiring tra nsfusion of 1 unit of PRBCs. She was also started on iron and vitamin C. She was noted to have elev ated D-dimer. CTA chest was negative for PE and bilateral lower extremity duplex was negative for DV T. She continued mobilizing with PT, OT. Case management was consulted for discharge planning. She was accepted to [facility] and transferred to their facility on 11/28/2017. She is to follow up with orthopedics in 2 weeks. She is weightbearing as tolerated. She did have a regular diet. There is no need for her to follow up with Trauma Services. The patient was seen and examined with Dr. Honeycutt who agrees with the assessment and plan.
== END 2017-11-28 18:20 | DRG 481 ==
LOC: ERS 18:19 → SURG A 20:00
PROVIDERS: ADMIT Specialist; ATTEND Specialist
PROC: 0QS636Z Reposition Right Upper Femur with Intramedullary Internal Fixation Device, Percutaneous Approach (ICD-10-PCS; principal; 2017-11-25)
PROC: 30233N1 Transfusion of Nonautologous Red Blood Cells into Peripheral Vein, Percutaneous Approach (ICD-10-PCS; 2017-11-26)
DX: S72.141A Displaced intertrochanteric fracture of right femur, initial encounter for closed fracture (principal); D62 Acute posthemorrhagic anemia; Z95.1 Presence of aortocoronary bypass graft; W01.198A Fall on same level from slipping, tripping and stumbling with subsequent striking against other object, initial encounter; I10 Essential (primary) hypertension; E03.9 Hypothyroidism, unspecified; I25.10 Atherosclerotic heart disease of native coronary artery without angina pectoris; Z79.82 Long term (current) use of aspirin; R79.1 Abnormal coagulation profile; E78.5 Hyperlipidemia, unspecified
CPT/HCPCS: 36415; 36416; 36430; 51702; 70450; 71045; 71275; 72170; 76000; 76001; 80048; 80053; 81003; 81015; 82550; 82553; 83690; 83735; 83880; 84100; 84484; 85007; 85025; 85027; 85379; 85610; 85730; 86850; 86900; 86901; 93005; 93970; 96361; 96374; 96375; 96376; J2270; A4216; C1713; C1769; G0390; G8978-GP-CL; G8979-GP-CI; G8987-GO-CK; G8988-GO-CI; J0131; J0360; J1100; J1650; J1815; J1885; J2001; J2405; J2704; J3010; P9016

== ENCOUNTER 2018-01-16 17:32 | Inpatient (IN) | payer MEDICARE, BC ==
[2018-01-16] MEDS ORDERED: Metoprolol Tartrate 5 MG/5 ML VIAL ONE ×2 (18:11→20:57)
[2018-01-16 18:33] LABS: CKMB 3.9 ng/mL (0-6.6); Troponin I 0.021 ng/mL (< 0.028)
[2018-01-16 18:34] LABS: ALT (SGPT) 17 U/L (8-55); AST (SGOT) 18 U/L (5-34); Albumin 3.4 g/dL (3.4-4.8); Alkaline Phosphatase 137 U/L (40-150); Anion Gap 12 mmol/L (10-20); BUN (Urea Nitrogen) 27 mg/dL (9.8-20.1); Bilirubin, Total 0.4 mg/dL (0.2-1.2); CK (CPK) 222 U/L (29-168); Calc. Creatinine Clearance 0 mL/min (70-130); Calcium 9.1 mg/dL (7.8-10.44); Carbon Dioxide 28 mmol/L (23-31); Chloride 101 mmol/L (98-107); Estimated GFR-MDRD 50; Globulin 3.6 g/dL (2.4-3.5); Glucose 200 mg/dL (83-110); Potassium 4.2 mmol/L (3.5-5.1); Sodium 137 mmol/L (136-145)
--- NOTE | 2018-01-16 19:18 | CT ---
CT BRAIN NONCONTRAST: DATE: 01-16-18 TIME: 5:59 p.m. HISTORY: 87-year-old female status post acute head trauma: Status post fall, striking head two days ago. COMPARISON: 11-24-17 FINDINGS: Again noted is the moderate sized region of encephalomalacia and gliosis in the right occipital lobe, contiguous with the ex vacuo dilatation of the occipital horn of the right lateral ventricle. There is no obstructive hydrocephalus, acute intraaxial or extraaxial hemorrhage, mass effect, midline shif t, extraaxial fluid collection, acute calvarial fracture, or any significant interval change. IMPRESSION: 1. No acute intracranial findings. 2. 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 CATALINO Gay POS: GONZALO
--- NOTE | 2018-01-16 19:50 | RAD ---
RIGHT KNEE FOUR VIEWS: Date: 01-16-18 Comparison: None. History: Fall, trauma, pain. FINDINGS: There is mild medial and lateral compartment narrowing. There is atherosclerotic calcification within the imaged right calf. There is no displaced fracture or evidence of dislocation seen. There is no k nee joint effusion. There is posterior patellar osteophyte formation and patellofemoral joint space n arrowing as well as enthesophyte formation at the insertion of the quadriceps tendon. There is athero sclerotic calcification posterior to the distal right femur. IMPRESSION: No acute fracture or evidence of dislocation. POS: TAMEKA
--- NOTE | 2018-01-16 19:52 | RAD ---
RADIOGRAPH CHEST 1 VIEW: Date: 01-16-18 Time: 6:03 p.m. HISTORY: 87-year-old female status post acute chest trauma from fall. COMPARISON: 11-24-17 FINDINGS: No grossly displaced rib fracture is identified, but CT would be more sensitive. Again noted are the sternotomy wires. Lordotic angulation on the current study makes comparison somewhat difficult with t he prior study. No consolidation or pulmonary edema. No pneumothorax identified. IMPRESSION: 1. No acute findings. 2. Previous open heart surgery. CATALINO POS: GONZALO
[2018-01-16 20:01] LABS: #Eosinphils 0.1 thou/uL (0.0-0.7); #Monocytes 1.2 thou/uL (0.11-0.59); #Neutrophils 7.9 thou/uL (1.40-6.50); %Basophils 0.3 % (0.0-1.0); %Eosinophils 1.2 % (0.0-10.0); %Lymphocytes 17.7 % (21.0-51.0); %Monocytes 10.9 % (0.0-10.0); %Neutrophils 69.9 % (42.0-75.0); Hemoglobin 11.1 g/dL (12.0-16.0); Mean Corpuscular HGB CONC 31.3 g/dL (32.0-36.0); Mean Corpuscular Hemoglobin 31.1 pg (27.0-31.0); Mean Corpuscular Volume 99.3 fl (81.0-99.0); Mean Platelet Volume 7.7 fL (7.4-10.4); Platelet Count 357 thou/uL (130-400); RBC Distribution Width 13.6 % (11.5-14.5); Red Blood Cell (RBC) Count 3.56 mill/uL (4.20-5.40); White Blood Cell (WBC) Count 11.3 thou/uL (4.8-10.8)
[2018-01-16] MEDS ORDERED: Piperacillin/Tazobactam 4.5 GM in Sodium Chloride 0.9% 100 ML IVPB SCH (21:15)
[2018-01-16] MEDS ORDERED: rOPINIRole HCl 0.5 MG TAB PO SCH (21:45)
[2018-01-16] MEDS ORDERED: Morphine 4 MG/ML VIAL ONE (21:50)
[2018-01-16] MEDS ORDERED: Ondansetron HCl/PF 4 MG/2 ML Vial ONE ×2 (21:50→21:53)
[2018-01-16 23:06] VITALS: BMI 22.1
[2018-01-17] MEDS ORDERED: Milk Of Magnesia 30 ML UDCUP PO PRN (05:23)
[2018-01-17] MEDS ORDERED: Bisacodyl 10 MG SUPP PR PRN (05:23)
[2018-01-17] MEDS ORDERED: Acetaminophen 500 MG TAB PO SCH (06:00)
[2018-01-17 06:05] LABS: #Eosinphils 0.1 thou/uL (0.0-0.7); #Lymphocytes 2.3 thou/uL (1.20-3.40); #Monocytes 1.6 thou/uL (0.11-0.59); #Neutrophils 9.4 thou/uL (1.40-6.50); %Basophils 0.3 % (0.0-1.0); %Eosinophils 0.5 % (0.0-10.0); %Lymphocytes 16.8 % (21.0-51.0); %Monocytes 11.8 % (0.0-10.0); %Neutrophils 70.6 % (42.0-75.0); Hemoglobin 10.3 g/dL (12.0-16.0); Mean Corpuscular HGB CONC 30.8 g/dL (32.0-36.0); Mean Corpuscular Hemoglobin 30.2 pg (27.0-31.0); Mean Corpuscular Volume 98.1 fl (81.0-99.0); Mean Platelet Volume 7.3 fL (7.4-10.4); Platelet Count 293 thou/uL (130-400); RBC Distribution Width 13.8 % (11.5-14.5); Red Blood Cell (RBC) Count 3.41 mill/uL (4.20-5.40); White Blood Cell (WBC) Count 13.4 thou/uL (4.8-10.8)
[2018-01-17 06:18] LABS: Anion Gap 13 mmol/L (10-20); BUN (Urea Nitrogen) 23 mg/dL (9.8-20.1); Calc. Creatinine Clearance 39 mL/min (70-130); Calcium 8.7 mg/dL (7.8-10.44); Carbon Dioxide 24 mmol/L (23-31); Chloride 103 mmol/L (98-107); Estimated GFR-MDRD 59; Glucose 145 mg/dL (83-110); Potassium 4.4 mmol/L (3.5-5.1); Sodium 136 mmol/L (136-145)
[2018-01-17] MEDS: Sodium Chloride 0.9% 1,000 ML IV SCH (06:42)
[2018-01-17] MEDS: Levothyroxine Sodium 112 MCG TAB PO SCH (06:42)
--- NOTE | 2018-01-17 08:33 | HP ---
CHIEF COMPLAINT: Atrial flutter. HISTORY OF PRESENT ILLNESS: This is an 87-year-old female with a known history of hypothyroidism, hypertension, hyperlipidemia, who was sent in by her home health care to the emergency department for a heart rate noted to be in the 130s. In the emergency department, the patient was found to have 2 issues; 1 that she was indeed tachycardic and with initial cardiac imaging demonstrating atrial flutter. Additionally, she was noted to have right knee erythema. At the time of my evaluation, the patient's right knee is batch still operator. The patient denies any chest pain or shortness of breath at this point in time. It appears that in the emergency department, she had undergone a thoracentesis with initial Gram stain demonstrating a "bloody tap" but without organisms seen on Gram stain. It appears also, in the emergency department, she received several doses of Lopressor, which transiently decreased her heart rate while she maintained atrial flutter without maintenance of rate control. REVIEW OF SYSTEMS: Constitutional: No recent fevers, chills, or significant weight changes. HEENT: No new headaches or vision changes. Denies any episodic dizziness; however, she did fall and hit her head 2 days ago without loss of consciousness. Cardiovascular: Denies any overt chest pain, chest pressure, left-sided arm numbness or tingling. Denied any episodic diaphoresis. Respiratory: Denies any shortness of breath, congestion, cough, postnasal drip. Gastrointestinal: Denies any nausea, vomiting, abdominal pain , diarrhea, or constipation. Genitourinary: Denies any episodes of dysuria, urinary frequency, change in urinary color, odor, or quantity. Musculoskeletal : Denies any new myalgias or new arthralgias other than that related to the right knee as noted above. Review of systems otherwise negative. PAST MEDICAL HISTORY: As per HPI, includes the followin. Hypertension. 2. Hyperlipidemia. 3. Known history of coronary artery disease, status post coronary artery bypass surgery (CABG) in 1998. 4. Hypothyroidism. 5. Status post hysterectomy. 6. Status post tonsillectomy. HOME MEDICATIONS: Please see the EMR for full details. Of note, the patient appears to be on the following, polyethylene glycol 3350, 17 grams p.o. daily; magnesium hydroxide 30 mL p.o. daily p.r.n.; bisacodyl 10 mg LA daily p.r.n.; tramadol 50 mg p.o. q.6 hours p.r.n.; vitamin C and E; zinc; copper; lutein; Zeaxan 1 cap p.o. daily; pravastatin 40 mg p.o. at bedtime; lisinopril/ hydrochlorothiazide 20/25 mg 1 tab p.o. b.i.d.; levothyroxine sodium 112 mcg p.o. q.a.m.; ferrous sulfate 325 mg p.o. b.i.d.; famotidine 1 tab p.o. q.a.m.; carvedilol 12.5 mg p.o. b.i.d.; ascorbic acid 1000 mg p.o. daily; acetaminophen 1000 mg p.o. q.6 hours; ropinirole Hcl, unknown dose; furosemide 20 mg, unknown frequency. ALLERGIES: Include LEVOFLOXACIN. FAMILY HISTORY: The patient denies any family history of recurrent joint, skin , or skeletal infections. SOCIAL HISTORY: The patient denies any alcohol or illicit drug use or tobacco use. PHYSICAL EXAMINATION: VITAL SIGNS: Temperature 98.3. Pulse 120, which is last recorded; however, upon viewing the telemetry monitoring appears to be 89, still in atrial flutter. Respiratory rate 18. Satting 99% on room air. Blood pressure 140/86. GENERAL: The patient is awake, no acute distress, lying in the hospital bed. CARDIOVASCULAR: S1 and S2. Pulses 2+, bilateral upper extremities. No murmurs , rubs, or gallops. RESPIRATORY: Grossly clear to auscultation. Limited anterior examination. ABDOMEN: Positive bowel sounds, soft, nontender to palpation. EXTREMITIES: Right knee erythematous, swollen without obvious exudate. Tender to palpation and flexion and extension. Range of motion is limited by pain. LABORATORY DATA AND IMAGING: WBC 11.3, hemoglobin 11.1, hematocrit 35.4, platelets 357, neutrophils 69.9%. Sodium 137, potassium 4.2, chloride 101, bicarbonate 28, BUN 27, creatinine 1.03, glucose 200. Lactic acid 1.6, calcium 9.1, total bilirubin 0.4, AST 18, ALT 17, alkaline phosphatase 137. Creatinine kinase 222, troponin 0.021. CRP 7.2. BNP 608.4, total protein 7.0, albumin 3.4. 01/16/2018, brain CT, impression: "No acute intracranial findings. A moderate-sized old right occipital infarction in the right posterior cerebral territory." 01/16/2018, chest x-ray, impression: "No acute findings. Previous open heart surgery." 01/16/2018, knee x-ray, impression: "No acute fracture evidence or dislocation." ASSESSMENT AND PLAN: An 87-year-old female, who presents with elevated heart rate and a swollen right knee. 1. Elevated heart rate. The patient initially in atrial flutter, currently with a heart rate of 89, is still in atrial flutter on telemetry, but is currently rate controlled. Resume the patient's home regimen and closely monitor. Maintain on telemetry. Cardiology consultation is appreciated. Check echocardiogram. Check TSH. Unclear precipitant. 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 2. Septic arthritis. Initial arthrocentesis fluid Gram stain results, "no epithelial cells, many rbcs present, few wbcs seen, no organism seen." Pending cultures due to negative organism on screen. Empiric vancomycin. 3. Known history of cardiovascular disease. Initial troponin is negative. Continue to monitor on telemetry and resume home regimen as noted above. 4. Hypertension, stable. 5. Hyperlipidemia, stable. 6. Hypothyroidism. Resume the patient's home levothyroxine dosing. Adjust if needed, if TSH, T3, T4 abnormal. 7. Diet: Diabetic, cardiac. 8. Activity as tolerated. 9. Deep venous thrombosis prophylaxis, Lovenox 30 mg subcu daily. Thank you for asking me to care for the patient. Questions or concerns, contact me at [facility]. NORBERTO
[2018-01-17] MEDS: Ascorbic Acid 500 mg Chewable Tablet PO SCH (08:37)
[2018-01-17] MEDS: Vit A,C & E/Lutein/Minerals Tablet PO SCH (08:38)
[2018-01-17] MEDS: Ferrous Sulfate 325 MG TAB PO SCH ×2 (08:38→17:06)
[2018-01-17] MEDS: Famotidine 20 MG TAB PO SCH (08:38)
[2018-01-17] MEDS: Carvedilol 25 MG TAB PO SCH ×2 (08:40→21:51)
[2018-01-17] MEDS: Enoxaparin Sodium 30 MG/0.3 ML SYRINGE SC SCH (08:41)
[2018-01-17] MEDS ORDERED: Polyethylene Glycol 3350 17 GM Packet PO PRN (08:43)
[2018-01-17] MEDS ORDERED: Polyethylene Glycol 3350 17 GM Packet PO SCH (09:00)
[2018-01-17] MEDS ORDERED: Famotidine 40 MG/4 ML VIAL SLOW IVP SCH (09:00)
[2018-01-17] MEDS ORDERED: Lisinopril/Hydrochlorothiazide 20/25 mg Tablet PO SCH (09:00)
[2018-01-17] MEDS: Furosemide 20 MG TAB PO SCH (09:55)
[2018-01-17] MEDS: Lisinopril 20 MG TAB PO SCH (09:55)
--- NOTE | 2018-01-17 10:56 | CON ---
DATE OF CONSULTATION: 01/17/2018 CHIEF COMPLAINT: Right knee pain. HISTORY OF PRESENT ILLNESS: Ms. Weaver is an 87-year-old female, who fell several days ago. She verdugo d 2 abrasions to the anterior aspect of her lower leg. These were being addressed by her home health nurse. She also struck her knee when she fell. She developed swelling over the anterior knee and t edwin developed erythema subsequent to that. There was no open wound or puncture to the knee. She had increased pain and presented to the emergency department on recommendation from her home health nurs ing care. She was admitted from the emergency department for atrial flutter. She also had a knee as pirate done in the emergency department to rule out an infection. Cultures are negative at this poin t. Orthopedics was consulted regarding her knee to again rule out infection and treat as needed. Valentino milton feels somewhat better since arrival. She has not been out of bed. She has been afebrile. PAST MEDICAL HISTORY: Coronary artery disease, hypertension, hypothyroidism, hyperlipidemia. PAST SURGICAL HISTORY: Previous cardiac bypass, tonsillectomy, hysterectomy, previous bladder surger y, previous intertrochanteric femur fracture repair. PSYCHIATRIC HISTORY: Negative. SOCIAL HISTORY: The patient has her son at the bedside. She denies tobacco or alcohol use. MEDICATIONS: Levaquin. REVIEW OF SYSTEMS: Positive for mild right knee pain, otherwise negative for 10-point review of syst ems. PHYSICAL EXAMINATION: VITAL SIGNS: Temperature is 98.3. She has been afebrile. Pulse is 111, respiratory rate is 18, oxy gen saturation 95% on room air, blood pressure is 153/67. GENERAL: She is alert, talkative, in no apparent distress. RESPIRATORY: Breathing comfortably. ABDOMEN: Soft, nontender, nondistended. MUSCULOSKELETAL: The patient's right lower extremity has erythema over the prepatellar bursa. There is no knee joint effusion. Gentle range of motion of 60 degrees is intact. She does have some disc omfort to the anterior knee to palpation. No significant warmth. No open wounds or drainage from th e knee. She has 2 abrasions over the anterior tibia, which have dressings appropriate. Neurovascula rly intact distally. IMAGES: Knee x-rays are negative for acute traumatic injury. There is mild osteoarthritis. IMPRESSION: Elderly female with prepatellar bursitis. PLAN: The patient could continue her vancomycin until she seems to be improving. At that point, she can be switched to an oral antibiotic. She will not need knee surgery for this most likely. I do n ot think she has a septic joint. We will follow her cultures over the next several days. She can mo bilize weightbearing as tolerated without restriction. Regular diet.
[2018-01-17] MEDS: traMADol HCl 50 MG TAB PO PRN (11:15)
[2018-01-17] MEDS: Acetaminophen 500 MG TAB PO PRN ×3 (12:53→21:58)
[2018-01-17] MEDS: Atorvastatin Calcium 10 MG TAB PO SCH (21:51)
[2018-01-17] MEDS: Vancomycin HCl 750 MG in Sodium Chloride 0.9% 250 ML 250 ML IVPB SCH (21:55)
--- NOTE | 2018-01-18 00:59 | CON ---
DATE OF CONSULTATION: 01/17/2018 INDICATION FOR CONSULTATION: This is a very pleasant 87-year-old female, I follow up for many years. We were asked to see Ms. Weaver due to new-onset atrial flutter. HISTORY OF PRESENT ILLNESS: She is a very pleasant 87-year-old female who had a history of coronary artery disease in the past. She has undergone bypass surgery. She was at home after she had a recen t right hip replacement, but she has also had a fall. 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 She denied any significant symptoms associated with the tachycardia, but when she arrived to the emergency room, her heart rates in the 120s to 130s and showed atrial flutter. She was given medications in the emergency room and eventual ly had the slowing of the heart rate, but continues to be in atrial flutter. She also had, I believe , a swollen right knee after she had a recent repeat fall and I believe, there was an arthrocentesis performed and there was no significant infection as far as I can determine those for this cultures verdugo ve remained negative. At this time, she has no cardiac complaints. The heart rate is under better c ontrol and she remains in atrial flutter. PAST MEDICAL HISTORY: Significant for the coronary artery disease. She has had bypass surgery. She has had a history of hypertension, hyperlipidemia. She has had a history of hypothyroidism. She verdugo d a tonsillectomy and hysterectomy. MEDICATIONS: Prior to admission included levothyroxine, Pravachol, MiraLax, vitamins, Coreg 12.5 mg b.i.d., Pepcid 20 mg once a day, vitamin C, ferrous sulfate 325 mg twice a day. She has also been ta jameson Milk of Magnesia, Ultram, Requip, furosemide 20 mg a day, Tylenol 500 mg one q.6 hours p.r.n. as needed, lisinopril 20 mg p.o. daily. ALLERGIES: She is apparently allergic to LEVOFLOXACIN. REVIEW OF SYSTEMS: She had no new complaints on the HEENT standpoint. She denies visual changes, he aring loss, or tinnitus. She denied any pulmonary complaints such as asthma, emphysema, bronchitis, or coughing. No recent flu or infectious origins. She denied any significant cardiac complaints. S he did not realize that she was even tachycardic. She has been doing quite well with her flutter, bu t this is a new onset atrial flutter for this lady. She had no nausea, vomiting, or diarrhea. She h as no significant complaints. She had no hematuria or dysuria. Musculoskeletal chavez, she did com plain of discomfort in the right lower extremity after the fall again on the knee and also she had be en recently on a hip surgery. Neurologically, she denied any significant seizures or syncope. SOCIAL HISTORY: She lives at home. She has no alcohol or tobacco abuse. PHYSICAL EXAMINATION: GENERAL: Reveals an elderly female who at this time is in no acute distress. She is sitting in a ch air. VITAL SIGNS: Blood pressure is 114/55, heart rate was 68 and regular. She is afebrile, respiratory rate was 16, O2 saturation was 98%. HEENT: Reveals the head to be normocephalic, atraumatic. Carotid pulses are present. I cannot hear any significant bruits. CHEST: Clear to auscultation without any rales, rhonchi, or wheezing. CARDIOVASCULAR: Exam reveals a somewhat regular rhythm. Occasionally, somewhat faster, however, stauffer s appear overall to be regular with a monitor does show atrial flutter. She had very soft systolic m urmur at the lower sternal border and also at the apex. ABDOMEN: Soft and nontender with positive bowel sounds. EXTREMITIES: Showed ecchymosis of the right lower extremity and somewhat tender and swollen right kn ee. Pedal pulses are decreased. I did not see any significant edema otherwise, except in the right lower extremity, which may be due to previous trauma. Neurologically for her age, she appears to be still intact, I do not see any focal motor deficits. SKIN: Remains warm and dry. IMPRESSION: 1. New onset atrial flutter with a somewhat controlled of heart rate at this time. We will ask the vascular tech to see her and for consideration of an ablation of the atrial flutter since this is a relatively difficult arrhythmia to control by medication alone and has a tendency to recur even if we are able to convert the patient, but at this time she remains stable with the atrial flutter. We will ask their opinion as to whether or not she will be a reasonable candidate for an ablation. 2. Hypertension, which is under good control at this time. 3. History of falls. We will need to be very careful in this lady with oral anticoagulation. 4. Increased age and somewhat deconditioning, but otherwise she remains stable. We will continue to follow the patient with you.
[2018-01-18] MEDS: traMADol HCl 50 MG TAB PO PRN ×4 (01:14→22:25)
[2018-01-18] MEDS: Acetaminophen 500 MG TAB PO PRN ×4 (03:59→22:26)
[2018-01-18 05:00] LABS: #Eosinphils 0.1 thou/uL (0.0-0.7); #Lymphocytes 1.7 thou/uL (1.20-3.40); #Monocytes 1.5 thou/uL (0.11-0.59); #Neutrophils 9.3 thou/uL (1.40-6.50); %Basophils 0.4 % (0.0-1.0); %Lymphocytes 13.4 % (21.0-51.0); %Monocytes 11.9 % (0.0-10.0); %Neutrophils 73.4 % (42.0-75.0); Hemoglobin 9.4 g/dL (12.0-16.0); Mean Corpuscular Hemoglobin 31.2 pg (27.0-31.0); Mean Corpuscular Volume 97.6 fl (81.0-99.0); Mean Platelet Volume 6.9 fL (7.4-10.4); Platelet Count 292 thou/uL (130-400); RBC Distribution Width 13.6 % (11.5-14.5); Red Blood Cell (RBC) Count 3.01 mill/uL (4.20-5.40); White Blood Cell (WBC) Count 12.6 thou/uL (4.8-10.8)
[2018-01-18] MEDS: Sodium Chloride 0.9% 1,000 ML IV SCH (05:43)
[2018-01-18] MEDS: Levothyroxine Sodium 112 MCG TAB PO SCH (05:50)
[2018-01-18 06:04] LABS: Anion Gap 13 mmol/L (10-20); BUN (Urea Nitrogen) 23 mg/dL (9.8-20.1); Calc. Creatinine Clearance 43 mL/min (70-130); Calcium 8.6 mg/dL (7.8-10.44); Carbon Dioxide 22 mmol/L (23-31); Chloride 106 mmol/L (98-107); Estimated GFR-MDRD 67; Glucose 136 mg/dL (83-110); Potassium 4.2 mmol/L (3.5-5.1); Sodium 137 mmol/L (136-145)
[2018-01-18] MEDS: Famotidine 20 MG TAB PO SCH ×2 (09:01→09:11)
[2018-01-18] MEDS: Lisinopril 20 MG TAB PO SCH (09:01)
[2018-01-18] MEDS: Carvedilol 25 MG TAB PO SCH ×2 (09:01→21:15)
[2018-01-18] MEDS: Furosemide 20 MG TAB PO SCH (09:01)
[2018-01-18] MEDS: Ferrous Sulfate 325 MG TAB PO SCH ×2 (09:02→17:13)
[2018-01-18] MEDS: Enoxaparin Sodium 30 MG/0.3 ML SYRINGE SC SCH ×2 (09:03→09:11)
[2018-01-18] MEDS: Ascorbic Acid 500 mg Chewable Tablet PO SCH (09:11)
[2018-01-18] MEDS: Vit A,C & E/Lutein/Minerals Tablet PO SCH (09:13)
--- NOTE | 2018-01-18 11:37 | CON ---
DATE OF CONSULTATION: 01/18/2018 REFERRING PHYSICIAN: Lilli Dumont M.D. I am seeing Ms. Weaver at our [facility] telemetry floor as electrophysiology netsuite consultant and her problems are: 1. Newly found atrial flutter with rapid ventricular rates. 2. History of coronary artery disease status coronary bypass grafting surgery in 1998. 3. Mild reduced LVEF at 45%-50%, normal atrial size. Moderate mitral and mild to moderate tricuspid regurgitation based on echo on 01/17/2018. 4. Coronary risk factors inclure hypertension and hyperlipidemia. ALLERGIES: LEVOFLOXACIN. MEDICATIONS AT HOME: Included levothyroxine, pravastatin, polyethylene glycol, vitamin C, Krxr-Uzpejb-Izutfo-Zeaxanthin, Ocuvite Lutein capsule, carvedilol 12.5 mg twice a day, Pepcid, ascorbic acid, Dulcolax, ferrous sulfate, magnesium hydroxide, tramadol, Requip, furosemide 20 a day, Tylenol, lisinopril 20 mg daily. SUBJECTIVE: Ms. Weaver is here due to her rapid heart rate was noted by her home health nurse. This lady has not been experiencing significant palpitation , was unaware for rapid heart rate. Last week, her heart rates were normal and on this weekend when the elevated heart rates were noted. She denies chest pains. She has no shortness of breath. No fever, chills or cough. No stroke- like symptoms. No neurological deficits. No PND or orthopnea. She has got some fall related bruising of her leg and knee. There was concern about some septic arthritis, but her arthrocentesis did not reveal organisms just blood accumulation. No other symptoms of infection are present. Rest of 12-point system otherwise unremarkable. PAST MEDICAL HISTORY: As above. She has no prior history of heart disease or cardiac arrhythmias. She does have history of coronary artery bypass grafting surgery in the past. She also reports some history of falls. Rest of 12-point system otherwise unremarkable. SOCIAL HISTORY: She lives alone at home. Denies ETOH, drug or tobacco abuse. OBJECTIVE: VITAL SIGNS: Blood pressure is 134/74, heart rate 130, respiration 16, temperature 97.6 degrees Fahrenheit. GENERAL: She is alert and oriented woman, in no apparent distress. NECK: Supple. Jugular veins not distended. CHEST: Coarse without crackles. CARDIOVASCULAR: Heart sounds are regular to rate and rhythm. No murmur or gallop. ABDOMEN: Benign. Bowel sounds positive. EXTREMITIES: Lower extremities without edema, clubbing or cyanosis. DATABASE: EKGs reviewed revealing atrial flutter what appears to be typical likely isthmus dependent morphology. Narrow QRS is noted. LABORATORY DATA: White cell count 12.6, hemoglobin 9.4, platelet count is 13.6. Sodium 137, potassium 4.2, BUN is 23, creatinine 0.81 noted. The body fluid culture reveals no bacteria and no growth at 12 hours. ASSESSMENT AND PLAN: Ms. Weaver is a pleasant 87-year-old woman with prior history of coronary artery bypass grafting surgery. She presents in atrial flutter with RVR. She already has some signs of LV dysfunction, which is likely due to prolonged rapid heart rates could be attributed to. She is though for now relatively asymptomatic. We discussed the mechanism of atrial flutter and also treatment options detailed option of cardioversion versus ablation procedure as well. I expressed my concerns about the chance for stroke and NICKO would be highly welcome to rule out any presence of thrombosis in the left atrial appendage prior to any of these procedures. It would be reasonable to proceed with the ablation procedure, although we discussed the chance of complications especially in view of her advanced age, bleeding risk, recurrence of stroke, tamponade risk were all discussed. She understands she will discuss with her son. We will schedule her for near date. Thank you again for allowing me to participate in the care of this patient. NORBERTO
--- NOTE | 2018-01-18 17:07 | PDOC.PN ---
- Subjective Encounter Start Date: 01/18/18 Encounter Start Time: 17:06 CC: Elevated HR Sub:L pt denies pain, says she feels better - Objective Resuscitation Status: Resuscitation Status FULL:Full Resuscitation Vital Signs & Weight: Vital Signs (12 hours) Temp Pulse Resp BP BP Pulse Ox 01/18/18 15:22 98.4 F 131 H 16 154/69 H 95 01/18/18 12:22 97.7 F 107 H 16 113/54 L 100 01/18/18 09:01 134/74 01/18/18 07:30 97.6 F 130 H 16 134/74 100 Weight Admit Weight 128 lb 12.8 oz Weight 128 lb 12.8 oz I&O: 01/17/18 01/18/18 01/19/18 06:59 06:59 06:59 Intake Total 638.9 2188 Output Total 200 1200 Balance 438.9 988 Result Diagrams: 01/18/18 04:41 01/18/18 04:41 Phys Exam - Physical Examination Constitutional: NAD HEENT: moist MMs Neck: no JVD Respiratory: no wheezing, no rales, no rhonchi Cardiovascular: RRR, no significant murmur, no rub Gastrointestinal: soft, non-tender, no distention Musculoskeletal: no edema Neurological: non-focal, moves all 4 limbs Psychiatric: normal affect Skin: no rash Dx/Plan - Plan Pt is 87 yrs old female 1. Aflutter 2. HTN 3. HPL 4. Septic arthritis 5. Hypothyroidism Plan: Cardio on board. Management per them Monitor bp closely. continue bp meds cultures no growth, continue iv antibiotics. continue levothyroxine lovenox for dvt prophylaxis case d/w pt & RN
[2018-01-18 20:48] LABS: Vancomycin, Trough 7.3 ug/mL
[2018-01-18] MEDS: rOPINIRole HCl 0.5 MG TAB PO SCH (21:14)
[2018-01-18] MEDS: Atorvastatin Calcium 10 MG TAB PO SCH (21:15)
[2018-01-18] MEDS: Vancomycin HCl 750 MG in Sodium Chloride 0.9% 250 ML 250 ML IVPB SCH (21:57)
[2018-01-19] MEDS ORDERED: Haloperidol Lactate 5 MG/ML VIAL SLOW IVP SCH (03:00)
[2018-01-19] MEDS: Levothyroxine Sodium 112 MCG TAB PO SCH (05:55)
[2018-01-19] MEDS: Acetaminophen 500 MG TAB PO PRN (05:57)
[2018-01-19 06:09] LABS: #Eosinphils 0.2 thou/uL (0.0-0.7); #Monocytes 1.2 thou/uL (0.11-0.59); #Neutrophils 7.3 thou/uL (1.40-6.50); %Basophils 0.5 % (0.0-1.0); %Eosinophils 2.2 % (0.0-10.0); %Monocytes 10.8 % (0.0-10.0); %Neutrophils 67.6 % (42.0-75.0); Hemoglobin 9.4 g/dL (12.0-16.0); Mean Corpuscular HGB CONC 31.6 g/dL (32.0-36.0); Mean Corpuscular Hemoglobin 31.1 pg (27.0-31.0); Mean Corpuscular Volume 98.3 fl (81.0-99.0); Mean Platelet Volume 7.3 fL (7.4-10.4); Platelet Count 316 thou/uL (130-400); RBC Distribution Width 13.5 % (11.5-14.5); Red Blood Cell (RBC) Count 3.02 mill/uL (4.20-5.40); White Blood Cell (WBC) Count 10.7 thou/uL (4.8-10.8)
[2018-01-19 06:15] LABS: Anion Gap 13 mmol/L (10-20); BUN (Urea Nitrogen) 24 mg/dL (9.8-20.1); Calc. Creatinine Clearance 45 mL/min (70-130); Calcium 8.6 mg/dL (7.8-10.44); Carbon Dioxide 23 mmol/L (23-31); Chloride 107 mmol/L (98-107); Estimated GFR-MDRD 70; Glucose 124 mg/dL (83-110); Potassium 4.4 mmol/L (3.5-5.1); Sodium 139 mmol/L (136-145)
[2018-01-19] MEDS ORDERED: PROPOFOL 200 MG/20 ML VIAL ONE (07:57)
[2018-01-19] MEDS ORDERED: Lidocaine 1% PF 5 ML VIAL ONE (07:58)
[2018-01-19] MEDS: Lisinopril 20 MG TAB PO SCH (08:47)
[2018-01-19] MEDS: Vit A,C & E/Lutein/Minerals Tablet PO SCH (08:47)
[2018-01-19] MEDS: Ascorbic Acid 500 mg Chewable Tablet PO SCH (08:47)
[2018-01-19] MEDS: Furosemide 20 MG TAB PO SCH (08:47)
[2018-01-19] MEDS: Carvedilol 25 MG TAB PO SCH ×2 (08:47→20:47)
[2018-01-19] MEDS: Ferrous Sulfate 325 MG TAB PO SCH ×2 (08:47→17:58)
[2018-01-19] MEDS ORDERED: Vancomycin HCl 750 MG in Sodium Chloride 0.9% 250 ML 250 ML IVPB SCH (09:00)
--- NOTE | 2018-01-19 09:54 | PDOC.CTH ---
<Mercedes Park - Last Filed: 01/19/18 09:52> Cardiology Progress Note - Subjective EP Progress note: Patient seen and examined. No new cardiac complaints overnight. She rested well and is has no concerns this am. She is ready for her ablation later today. - Objective Vital Signs Temp Pulse Resp BP Pulse Ox 01/19/18 08:43 97.9 F 115 H 18 121/56 L 99 01/19/18 04:00 97.7 F 97 20 112/54 L 98 01/19/18 00:00 98.4 F 85 20 140/90 99 Admit Weight 128 lb 12.8 oz Weight 128 lb 12.8 oz 01/18/18 01/19/18 01/20/18 06:59 06:59 06:59 Intake Total 2188 490 Output Total 1200 1050 Balance 988 -560 - Physical Examination General/Neuro: alert & oriented x3, NAD Neck: carotid US brisk, no JVD present Lungs: unlabored respirations Heart: PMI normal, RRR Abdomen: NT/ND, soft Extremities: + edema B (R>L) - Labs Result Diagrams: 01/19/18 05:18 01/19/18 05:18 Troponin/CKMB CK-MB (CK-2) 3.9 ng/mL (0-6.6) 01/16/18 17:53 Troponin I 0.021 ng/mL (< 0.028) 01/16/18 17:53 - Assessment/Plan 1. Newly diagnosed typical atrial flutter with RVR- scheduled for NICKO and CTI ablation later today. Currently maintaining sinus rhythm. 2. OAC- Not currently anticoagulated. Will have NICKO pre ablation to rule out intracardiac thrombosis. Will need OAC for at least one month post ablation. Will begin Eliquis 2.5mg PO BID tonight after ablation as long as she remains stable without bleeding post operatively. <Wicho Landis - Last Filed: 01/19/18 15:51> Cardiology Progress Note - Objective Vital Signs Temp Pulse Resp BP Pulse Ox 01/19/18 11:35 97.9 F 68 18 122/68 98 01/19/18 08:43 97.9 F 115 H 18 121/56 L 99 01/19/18 08:00 97.9 F 68 18 97 01/19/18 04:00 97.7 F 97 20 112/54 L 98 Admit Weight 128 lb 12.8 oz Weight 128 lb 12.8 oz 01/18/18 01/19/18 01/20/18 06:59 06:59 06:59 Intake Total 2188 490 Output Total 1200 1050 Balance 988 -560 - Labs Result Diagrams: 01/19/18 05:18 01/19/18 05:18 Troponin/CKMB CK-MB (CK-2) 3.9 ng/mL (0-6.6) 01/16/18 17:53 Troponin I 0.021 ng/mL (< 0.028) 01/16/18 17:53 Attending Addendum - Attending Addendum Date/Time: 01/19/18 9231 I personally evaluated the patient and discussed the management with MS Park. I agree with the History, Examination, Assessment and Plan documented above with any addition or exceptions noted below.
[2018-01-19] MEDS: Famotidine 20 MG TAB PO SCH (11:22)
[2018-01-19] MEDS: traMADol HCl 50 MG TAB PO PRN (11:24)
--- NOTE | 2018-01-19 13:55 | PDOC.CTH ---
Cardiology Progress Note - Subjective The pt seen and examined. No overnight events. No cardiac complaints. She denied palpitation or fluttering in her chest, dizziness, or lightheadedness. - Objective Vital Signs Temp Pulse Resp BP Pulse Ox 01/19/18 11:35 97.9 F 68 18 122/68 98 01/19/18 08:43 97.9 F 115 H 18 121/56 L 99 01/19/18 08:00 97.9 F 68 18 97 01/19/18 04:00 97.7 F 97 20 112/54 L 98 Admit Weight 128 lb 12.8 oz Weight 128 lb 12.8 oz 01/18/18 01/19/18 01/20/18 06:59 06:59 06:59 Intake Total 2188 490 Output Total 1200 1050 Balance 988 -560 - Physical Examination General/Neuro: alert & oriented x3 Neck: no JVD present Lungs: CTA Heart: other: (irregular) Abdomen: soft Extremities: other: (No edema) - Telemetry Telemetry Rhythm: Aflutter 60s - Labs Result Diagrams: 01/19/18 05:18 01/19/18 05:18 Troponin/CKMB CK-MB (CK-2) 3.9 ng/mL (0-6.6) 01/16/18 17:53 Troponin I 0.021 ng/mL (< 0.028) 01/16/18 17:53 - Assessment/Plan 1. New onset Aflutter - NICKO and possible Ablation today by Dr Landis. Eliquis 2.5mg BID will be started after the procedure. 2. CAD with Hx of CABG x2 in 1998 - stable; On Statin, BBlocker and AMLAIA; cont. monitor on tele 3. HTN - stable with current meds. Cont. monitor 4. Hyperlipidemia - on Statin 5. Hypothyroidism - on Levothyroxin; managed by PCP * Echo on 01/16/18 showed EF 45-50%, normal Bilat. Atrium, mod MR, mild-mod TR. Review of Systems - Review of Systems Constitutional: reports: no symptoms reported EENTM: reports: no symptoms reported Respiratory: reports: no symptoms reported Cardiac (ROS): reports: no symptoms reported ABD/GI: reports: no symptoms reported : reports: no symptoms reported Musculoskeletal: reports: no symptoms reported
[2018-01-19] MEDS ORDERED: PROPOFOL 40 ML ONE (15:22)
--- NOTE | 2018-01-19 15:27 | PDOC.PN ---
- Subjective Encounter Start Date: 01/19/18 Encounter Start Time: 15:25 CC: dyspnea sub: pt denies dyspnea - Objective Resuscitation Status: Resuscitation Status FULL:Full Resuscitation Vital Signs & Weight: Vital Signs (12 hours) Temp Pulse Resp BP Pulse Ox 01/19/18 11:35 97.9 F 68 18 122/68 98 01/19/18 08:43 97.9 F 115 H 18 121/56 L 99 01/19/18 08:00 97.9 F 68 18 97 01/19/18 04:00 97.7 F 97 20 112/54 L 98 Weight Admit Weight 128 lb 12.8 oz Weight 128 lb 12.8 oz I&O: 01/18/18 01/19/18 01/20/18 06:59 06:59 06:59 Intake Total 2188 490 Output Total 1200 1050 Balance 988 -560 Result Diagrams: 01/19/18 05:18 01/19/18 05:18 Dx/Plan - Plan - Physical Examination Constitutional: NAD HEENT: moist MMs Neck: no JVD Respiratory: no wheezing, no rales, no rhonchi, no accessory muscle usa Cardiovascular: RRR, no significant murmur, no rub Gastrointestinal: soft, non-tender, no distention Musculoskeletal: no edema Neurological: non-focal, moves all 4 limbs Psychiatric: normal affect Skin: no rash Dx/Plan - Plan Pt is 87 yrs old female 1. Aflutter 2. HTN 3. HPL 4. R/O Septic arthritis 5. Hypothyroidism Plan: Cardio on board. Management per them, NICKO & possible ablation today Monitor bp closely. continue bp meds cultures no growth, continue iv vancomycin, ID consulted. continue levothyroxine lovenox for dvt prophylaxis case d/w pt & Pt son
[2018-01-19] MEDS ORDERED: Heparin 10,000 UNITS/1 ML VIAL ONE (15:50)
--- NOTE | 2018-01-19 15:54 | CON ---
DATE OF CONSULTATION: 01/19/2018 REASON FOR CONSULTATION: Inflammatory changes with pain, right prepatellar region after fall. HISTORY OF PRESENT ILLNESS: An 87-year-old a history of hypothyroidism, hypertension, hyperlipidemia, and coronary disease with prior bypass graft surgery, who sustained a fall in the home setting, injury to her right anterior knee, and was brought to the emergency room. On arrival, she was tachycardic with evidence of atrial flutter and she had an area of right knee erythema. Arthrocentesis was attempted. We obtained only 1 mL of fluid, which was hemorrhagic. Now, she is being prepared for ablation later today for management of her supraventricular arrhythmia. She is awake, alert, and oriented. Denies any headaches, visual symptoms, sore throat, odynophagia, or dysphagia. No cough or sputum production or chest pain. No abdominal pain or diarrhea. No joint symptoms outside the right knee except for chronic arthrosis related symptoms. No neurological symptoms. PAST MEDICAL HISTORY: Hypertension, coronary artery disease, bypass graft surgery, hypothyroidism, hyperlipidemia. PAST SURGICAL HISTORY: Includes hysterectomy and tonsillectomy. MEDICATIONS: At home, she is on MiraLax, magnesium hydroxide, tramadol, multivitamins, Pravachol, lisinopril, hydrochlorothiazide, levothyroxine, Pepcid , Coreg, ascorbic acid. ALLERGIES: LEVAQUIN, mostly intolerance, not true allergic reaction. FAMILY HISTORY: Noncontributory. SOCIAL HISTORY: Never a smoker. , lives in [place] in [place]. PHYSICAL EXAMINATION: VITAL SIGNS: The patient is afebrile, blood pressure 120/56, pulse 115 and now 68, O2 sat 98%. SKIN: Examination shows the area of erythema, salmon colored, anterior right knee prepatellar region. Peripheral IV access. No Forbes catheter. No pacemaker. No lymphadenopathy. HEENT: Ocular movements are conjugate. Numerous missing teeth. NECK: Supple. LUNGS: Symmetric breath sounds. No crackles or wheezing. HEART: S1, S2 with frequent extra beats. ABDOMEN: Not distended or tender. No organomegaly or ascites. No bladder distention. EXTREMITIES: The right knee has the other round shaped area of salmon colored erythema in the skin. There is no evidence of joint effusion. A little bit of cystic consistency of the superolateral aspect of the patellar skin region. No edema. Pulses 1+ dorsalis pedis. Plantar responses are flexure. Strength in extremities is preserved. Cognitive function appears to be intact. LABORATORY DATA: White cell count of 11,000 and now is 10.7, hemoglobin 9.4, platelets 316. Sodium 139, creatinine 0.78. The liver enzymes are normal. CK 222. CRP 7.2. Crystal ID was negative. ASSESSMENT: 1. Atrial flutter requiring ablation to be performed later today. 2. Coronary artery disease history. 3. Injury to the right prepatellar region with mild inflammatory changes. DISCUSSION: It is very unlikely the patient has septic arthritis. The worst case scenario would be infectious bursitis in the prepatellar region, but a traumatic bursitis is more likely in this case. There is no evidence of violation of the skin integrity at this point in time. Recommend discontinuation of antimicrobial therapy and conservative measures, it is important to follow up in the outpatient setting carefully to make sure this does not persist or deteriorates. In that case, she might need bursa aspirate or I&D and then antimicrobial therapy. NORBERTO
[2018-01-19] MEDS ORDERED: Lidocaine 1% (PF) 30 ML VIAL ONE (15:55)
[2018-01-19] MEDS ORDERED: Isoproterenol 0.2 MG/1 ML AMP ONE (16:26)
[2018-01-19] MEDS ORDERED: Vancomycin HCl 1.25 GM in Sodium Chloride 0.9% 250 ML 250 ML IVPB SCH (18:00)
[2018-01-19] MEDS: rOPINIRole HCl 0.5 MG TAB PO SCH (20:47)
[2018-01-19] MEDS: Atorvastatin Calcium 10 MG TAB PO SCH (20:47)
[2018-01-19] MEDS: Vancomycin HCl 750 MG in Sodium Chloride 0.9% 250 ML 250 ML IVPB SCH (20:47)
[2018-01-19] MEDS: Apixaban 5 MG TAB PO SCH (20:48)
[2018-01-19] MEDS ORDERED: Apixaban 2.5 MG TAB PO SCH (21:00)
[2018-01-20] MEDS: Acetaminophen 500 MG TAB PO PRN ×2 (03:30→23:08)
[2018-01-20] MEDS: Levothyroxine Sodium 112 MCG TAB PO SCH (03:31)
[2018-01-20] MEDS: traMADol HCl 50 MG TAB PO PRN ×4 (03:31→23:04)
[2018-01-20 05:16] LABS: Anion Gap 14 mmol/L (10-20); BUN (Urea Nitrogen) 25 mg/dL (9.8-20.1); Calc. Creatinine Clearance 45 mL/min (70-130); Calcium 8.7 mg/dL (7.8-10.44); Carbon Dioxide 23 mmol/L (23-31); Chloride 105 mmol/L (98-107); Estimated GFR-MDRD 68; Glucose 139 mg/dL (83-110); Potassium 4.3 mmol/L (3.5-5.1); Sodium 138 mmol/L (136-145)
[2018-01-20 05:27] LABS: Hemoglobin 9.5 g/dL (12.0-16.0); Lymphocytes 18 % (21-51); MDiff Complete? YES; Mean Corpuscular HGB CONC 32.6 g/dL (32.0-36.0); Mean Corpuscular Hemoglobin 31.6 pg (27.0-31.0); Mean Corpuscular Volume 96.7 fl (81.0-99.0); Mean Platelet Volume 7.3 fL (7.4-10.4); Monocytes 12 % (0-10); Neutrophil 70 % (42-75); PLT Morphology Comment Appears Adequate; Platelet Count 335 thou/uL (130-400); RBC Distribution Width 13.7 % (11.5-14.5); Red Blood Cell (RBC) Count 3.01 mill/uL (4.20-5.40); White Blood Cell (WBC) Count 11.8 thou/uL (4.8-10.8)
--- NOTE | 2018-01-20 08:01 | ECHO ---
PROCEDURE NOTE: Date: 01/19/18 PROCEDURE: Transesophageal echocardiogram. REASON FOR PROCEDURE: Ms. Weaver is a pleasant 87-year-old female with history of -------- cardiac disease who presents with present atrial flutter with rapid rates. She underwent NICKO prior to the planned possible ablation procedure. PROCEDURE: The patient received deep sedation by anesthesia specialist. A standard transesophageal echocardiogram probe was passed into the esophagus without difficulty. Patient tolerated procedure well. No complications noted. RESULTS: Left atrium is mildly enlarged, 4.9 cm in horizontal diameter. Left atrial appendage visualized, no clots. Spontaneous echo contrast is seen through the left atrium. Mild mitral regurgitation seen. Four of four pulmonary veins were visualized. Interatrial septum is free of defect. Right chambers normal in size. Trace tricuspid. No significant pulmonic regurgitation seen. Aortic valve has 3 leaflets, without regurgitation or stenosis. Pericardial space without effusion. Left appendage contains no clots. Visualized portion of the ascending and descending aorta without aneurysm, dissection, or significant atheroma. CONCLUSION: 1. No intracardiac clots. Spontaneous echo contrast is seen through the left atrium. 2. Mild left atrial enlargement. 3. Mild to moderate reduced LVEF about 40-45% noted. 4. Only Mild mitral regurgitation. 5. Mild atherosclerosis in the aorta is visualized. PLAN: Proceed with ablation and consider OAC. MTDD
[2018-01-20 08:24] LABS: Vancomycin, Trough 15.3 ug/mL
[2018-01-20] MEDS: Ferrous Sulfate 325 MG TAB PO SCH ×2 (09:23→16:39)
[2018-01-20] MEDS: Lisinopril 20 MG TAB PO SCH (09:24)
[2018-01-20] MEDS: Carvedilol 25 MG TAB PO SCH ×2 (09:24→20:40)
[2018-01-20] MEDS: Famotidine 20 MG TAB PO SCH (09:24)
[2018-01-20] MEDS: Vit A,C & E/Lutein/Minerals Tablet PO SCH (09:24)
[2018-01-20] MEDS: Furosemide 20 MG TAB PO SCH (09:24)
[2018-01-20] MEDS: Apixaban 5 MG TAB PO SCH ×2 (09:24→20:39)
[2018-01-20] MEDS: Ascorbic Acid 500 mg Chewable Tablet PO SCH (09:24)
--- NOTE | 2018-01-20 10:32 | PRG ---
DATE OF SERVICE: 01/20/2018 ORTHOPEDIC PROGRESS NOTE SUBJECTIVE: Ms. Owen Monroe is being evaluated and treated from a Cardiology standpoint for atrial fibrillation with rapid ventricular response. Her right prepatellar bursa is still a little tender and inflamed, but she feels like it is improving. She is able to get up and get around and ambulate with a walking program. Dr. Epps's consultation was evaluated and appreciated. Agree with posttrau matic inflammatory prepatellar bursitis. PHYSICAL EXAMINATION: Her right knee is still little fluctuant, it is minimally tender. Again, no s ignificant erythema extends past the patella itself. There is no intra-articular process. Ballottem ent is negative and there is no effusion palpable. She can straight leg raise without any problem. She is neurovascularly intact in the involved extremity. IMPRESSION: Right knee prepatellar posttraumatic inflammatory prepatellar bursitis. PLAN: Continue current conservative measures. Agree with discontinuance of antibiotics. If it cont inues to improve, then observation. If it swells and erythema extends, then consider I&D. We will r echeck the patient at regular intervals.
[2018-01-20] MEDS: Vancomycin HCl 750 MG in Sodium Chloride 0.9% 250 ML 250 ML IVPB SCH ×2 (12:10→18:30)
--- NOTE | 2018-01-20 13:17 | PDOC.PN ---
- Subjective Encounter Start Date: 01/20/18 Encounter Start Time: 09:30 Subjective: feels better, says her knee is getting better - Objective Resuscitation Status: Resuscitation Status FULL:Full Resuscitation MAR Reviewed: Yes Vital Signs & Weight: Vital Signs (12 hours) Temp Pulse Resp BP Pulse Ox 01/20/18 12:09 98.2 F 63 16 114/58 L 96 01/20/18 07:51 97.9 F 66 18 152/67 H 96 01/20/18 03:24 98.4 F 77 20 186/77 H 96 Weight Admit Weight 128 lb 12.8 oz Weight 130 lb 8 oz I&O: 01/19/18 01/20/18 01/21/18 06:59 06:59 06:59 Intake Total 490 100 Output Total 1050 Balance -560 100 Result Diagrams: 01/20/18 04:42 01/20/18 04:42 Phys Exam - Physical Examination HEENT: PERRLA, moist MMs Neck: no JVD, supple Respiratory: no wheezing, no rales Cardiovascular: RRR, no significant murmur Gastrointestinal: soft, non-tender, positive bowel sounds Musculoskeletal: pulses present right knee has erythema over patella with edema Neurological: non-focal, moves all 4 limbs Psychiatric: A&O x 3 Dx/Plan (1) Atrial flutter Code(s): I48.92 - UNSPECIFIED ATRIAL FLUTTER Status: Resolved Qualifiers: Atrial flutter type: typical Qualified Code(s): I48.3 - Typical atrial flutter Comment: s/p ablation (2) CAD (coronary artery disease) Code(s): I25.10 - ATHSCL HEART DISEASE OF [place] CORONARY ARTERY W/O ANG PCTRS Status: Chronic Qualifiers: Coronary Disease-Associated Artery/Lesion type: bypass graft [place] vs. transplanted heart: [place] heart Associated angina: without angina Qualified Code(s): I25.810 - Atherosclerosis of coronary artery bypass graft(s) without angina pectoris (3) Prepatellar bursitis Code(s): M70.40 - PREPATELLAR BURSITIS, UNSPECIFIED KNEE Status: Acute Qualifiers: Laterality: right Qualified Code(s): M70.41 - Prepatellar bursitis, right knee (4) Dyslipidemia Code(s): E78.5 - HYPERLIPIDEMIA, UNSPECIFIED Status: Chronic (5) Chronic anemia Code(s): D64.9 - ANEMIA, UNSPECIFIED Status: Chronic (6) Hypothyroidism Code(s): E03.9 - HYPOTHYROIDISM, UNSPECIFIED Status: Chronic Qualifiers: Hypothyroidism type: unspecified Qualified Code(s): E03.9 - Hypothyroidism , unspecified (7) Hypertension Code(s): I10 - ESSENTIAL (PRIMARY) HYPERTENSION Status: Chronic Qualifiers: Hypertension type: essential hypertension Qualified Code(s): I10 - Essential (primary) hypertension - Plan is on coreg, lisinopril and lipitor -: eliquis low dose post ablation for 4 weeks -: antibiotics per ortho advice -: dc plan per EP and ortho advice -: may tx to med if ok with EP/cardio * . Review of Systems - Medications/Allergies Allergies/Adverse Reactions: Allergies Allergy/AdvReac Type Severity Reaction Status Date / Time levofloxacin Allergy Verified 11/03/17 09:29 Medications: Current Medications Acetaminophen (Tylenol) 1,000 mg PO Q6H PRN PRN Reason: PAIN/FEVER Last Admin: 01/20/18 03:30 Dose: 1,000 mg Apixaban (Eliquis) 2.5 mg PO BID [facility] Last Admin: 01/20/18 09:24 Dose: 2.5 mg Ascorbic Acid (Vitamin C) 1,000 mg PO DAILY [facility] Last Admin: 01/20/18 09:24 Dose: 1,000 mg Atorvastatin Calcium (Lipitor) 10 mg PO HS [facility] Last Admin: 01/19/18 20:47 Dose: 10 mg Bisacodyl (Dulcolax) 10 mg VT DAILYPRN PRN PRN Reason: Constipation Carvedilol (Coreg) 12.5 mg PO BID [facility] Last Admin: 01/20/18 09:24 Dose: 12.5 mg Famotidine (Pepcid) 20 mg PO QAM [facility] Last Admin: 01/20/18 09:24 Dose: 20 mg Ferrous Sulfate (Feosol) 325 mg PO BID-WM [facility] Last Admin: 01/20/18 09:23 Dose: 325 mg Furosemide (Lasix) 20 mg PO DAILY [facility] Last Admin: 01/20/18 09:24 Dose: 20 mg Levothyroxine Sodium (Synthroid) 112 mcg PO 0600 [facility] Last Admin: 01/20/18 03:31 Dose: 112 mcg Lisinopril (Zestril) 20 mg PO DAILY [facility] Last Admin: 01/20/18 09:24 Dose: 20 mg Magnesium Hydroxide (Milk Of Magnesium) 30 ml PO DAILYPRN PRN PRN Reason: Constipation Miscellaneous Medication (Pharmacy To Dose) 1 each IVPB PRN PRN PRN Reason: Pharmacy to dose Multivitamins/Minerals (Ocuvite With Lutein) 1 tab PO DAILY [facility] Last Admin: 01/20/18 09:24 Dose: 1 tab Polyethylene Glycol (Miralax) 17 gm PO DAILYPRN PRN PRN Reason: CONSTIPATION Last Admin: 01/18/18 10:42 Dose: 17 gm Ropinirole HCl (Requip) 0.5 mg PO HS [facility] Last Admin: 01/19/18 20:47 Dose: 0.5 mg Sodium Chloride (Flush - Normal Saline) 10 ml IVF PRN PRN PRN Reason: Saline Flush Last Admin: 01/18/18 09:13 Dose: 10 ml Sodium Chloride (Flush - Normal Saline) 10 ml IVF Q12HR [facility] Last Admin: 01/20/18 09:25 Dose: 10 ml Tramadol HCl (Ultram) 50 mg PO Q6H PRN PRN Reason: pain 1-5 Last Admin: 01/20/18 09:36 Dose: 50 mg
--- NOTE | 2018-01-20 13:47 | PDOC.CTH ---
<MarthaKimber - Last Filed: 01/20/18 13:51> Cardiology Progress Note - Subjective The pt seen and examined. No overnight events. No cardiac complaints. She denied palpitation or fluttering in her chest, dizziness or other cardiac complaints. She still has discomfort to Rt knee. - Objective Vital Signs Temp Pulse Resp BP Pulse Ox 01/20/18 12:09 98.2 F 63 16 114/58 L 96 01/20/18 07:51 97.9 F 66 18 152/67 H 96 01/20/18 03:24 98.4 F 77 20 186/77 H 96 Admit Weight 128 lb 12.8 oz Weight 130 lb 8 oz 01/19/18 01/20/18 01/21/18 06:59 06:59 06:59 Intake Total 490 100 Output Total 1050 Balance -560 100 - Physical Examination General/Neuro: alert & oriented x3 Neck: no JVD present Lungs: CTA Heart: RRR Abdomen: soft Extremities: other: (No edema) - Telemetry Telemetry Rhythm: SR 80s - Labs Result Diagrams: 01/20/18 04:42 01/20/18 04:42 Troponin/CKMB CK-MB (CK-2) 3.9 ng/mL (0-6.6) 01/16/18 17:53 Troponin I 0.021 ng/mL (< 0.028) 01/16/18 17:53 - Assessment/Plan 1. New onset Aflutter - Remains SR; S/p NICKO and Ablation on 01/19/[address] Landis. On Eliquis 2.5mg BID. 2. CAD with Hx of CABG x2 in 1998 - stable; On Statin, BBlocker and AMALIA; cont. monitor on tele 3. HTN - stable with current meds. Cont. monitor 4. Hyperlipidemia - on Statin 5. Hypothyroidism - on Levothyroxin; managed by PCP * Echo on 01/16/18 showed EF 45-50%, normal Bilat. Atrium, mod MR, mild-mod TR. * S/p NICKO and Ablation on 01/19/[address] Landis * From Cardiac standpoint, the pt is stable to d/c home. The pt will f/u with Dr Dumont' office within 4 wks. Review of Systems - Review of Systems Constitutional: reports: no symptoms reported EENTM: reports: no symptoms reported Respiratory: reports: no symptoms reported Cardiac (ROS): reports: no symptoms reported ABD/GI: reports: no symptoms reported : reports: no symptoms reported Musculoskeletal: reports: see HPI <Michelle Dumont - Last Filed: 01/20/18 14:15> Cardiology Progress Note - Objective Vital Signs Temp Pulse Resp BP Pulse Ox 01/20/18 12:09 98.2 F 63 16 114/58 L 96 01/20/18 07:51 97.9 F 66 18 152/67 H 96 01/20/18 03:24 98.4 F 77 20 186/77 H 96 Admit Weight 128 lb 12.8 oz Weight 130 lb 8 oz 01/19/18 01/20/18 01/21/18 06:59 06:59 06:59 Intake Total 490 100 Output Total 1050 Balance -560 100 - Labs Result Diagrams: 01/20/18 04:42 01/20/18 04:42 Troponin/CKMB CK-MB (CK-2) 3.9 ng/mL (0-6.6) 01/16/18 17:53 Troponin I 0.021 ng/mL (< 0.028) 01/16/18 17:53 - Assessment/Plan Pt. seen and eval. by me. I agree with the A/P by the [facility]. Chest clear. RRR. Maintaining NSR after ablation of atrial flutter
--- NOTE | 2018-01-20 14:33 | OP ---
DATE OF SURGERY: 01/19/2018 ELECTROPHYSIOLOGY STUDY AND RADIOFREQUENCY ABLATION ATTENDING PHYSICIAN: Romain Worthington M.D. REASON FOR PROCEDURE: Mrs. Weaver is an 87-year-old female with prior history of hypertension, no significant cardiac disease who presented with sustained typical atrial flutter with rapid ventricular rates requiring a diltiazem drip. NICKO prior to the procedure demonstrates no intracardiac clots, but spontaneous heavy echo contrast and mild to moderate reduced LVEF about 40%-45%. DESCRIPTION OF PROCEDURE: The patient received deep sedation by Anesthesia specialist. After adequate level of sedation achieved, the right femoral venous area was prepped and anesthetized using subcutaneous lidocaine. With ultrasound guidance, two 8-Guyanese short sheaths were introduced. Through this, a decapolar 7-[place] catheter was advanced to the right ventricle, right atrium , His bundle and eventually CS position. Pacing mapping and recording was performed in each location. The baseline rhythm was atrial flutter with atrial cycle length of 232 milliseconds. Overdrive pacing with entrainment was achieved from the proximal CS poles as well as mid to CS poles demonstrating a shorter post-pacing interval at the proximal CS location, suggesting a right atrial arrhythmia. Following that, a [employer] SF ST catheter was advanced to the right atrium and detailed right atrial map was obtained. His bundle and CS as well as the cavotricuspid isthmus areas were detailed. Following that, a cavotricuspid isthmus ablation was performed with total of 2.5 minutes of 40 mendoza cautery delivered resulting in termination of atrial flutter. Following that, a proximal CS pacing and mapping of the cavotricuspid isthmus was performed achieving complete cavotricuspid block demonstrated by longest post-pacing interval adjacent to the lateral side of the ablation line. Following that, isuprel was administered and burst atrial pacing was performed to attempt to induce arrhythmias which was unsuccessful. Basic EP study was also performed demonstrating about 45 milliseconds. Sinus node recovery time about 1269 with corrected sinus to recovery time was 290 after 300 milliseconds overdrive pacing. AV Wenckebach sinus for 40 milliseconds,VA retrograde wenkebach CL was 540 milliseconds with central concentric retrograde activation. AV node ERP was 600/360 milliseconds without evidence of dual AV juan physiology seen. Again, burst atrial pacing did not re-induce any atrial tachycardia or flutter or SVT. CONCLUSION: 1. Typical atrial flutter at baseline with successful ablation of the arrhythmia with the cavotricuspid isthmus ablation. 2. Normal sinus AV juan and His-Purkinje function demonstrated post-ablation. PLAN: Resume anticoagulation for a month and monitor for recurrent atrial arrhythmias. MTDD
[2018-01-20] MEDS: Atorvastatin Calcium 10 MG TAB PO SCH (20:40)
[2018-01-20] MEDS: rOPINIRole HCl 0.5 MG TAB PO SCH (20:40)
--- NOTE | 2018-01-20 23:22 | PRG ---
DATE OF SERVICE: 01/20/2018 SUBJECTIVE: Ms. Weaver seems to doing well one day after her ablation procedure. She has no palpit ations, no chest pains, and no groin swelling. OBJECTIVE: VITAL SIGNS: Blood pressure is 114/58, heart rate 66, respirations 16, temperature 98.2 degrees Fahr enheit. GENERAL: Alert and oriented woman, in no apparent distress. NECK: Supple. Jugular veins are distended. CHEST: Coarse without crackles. CARDIOVASCULAR: Heart sounds are regular to rate and rhythm. No murmur or gallop. ABDOMEN: Benign. Bowel sounds positive. EXTREMITIES: Without edema, clubbing or cyanosis. The right groin swelling is still present. Telemetry strips reveals sinus rhythm. LABORATORY DATA: White count 11.8, hemoglobin 9.5, platelet count is 335. Electrolytes in normal ra nge. BUN 25, creatinine 0.8. ASSESSMENT AND PLAN: Ms. Weaver is an 87-year-old female with a prior history of hypertension, who presented with softened atrial flutter. She underwent NICKO demonstrating no intracardiac clots, mild to moderate reduced LV function 40%-45% noted, only mild mitral regurgitation is seen. She underwent cavotricuspid isthmus ablation, but she already has atrial flutter and . She was started on El iquis 2.5 mg twice a day. Hence her lower weight 130 pounds. Plan is at this point to continue rout ine postoperative management. I would continue Eliquis as well, monitor for bleeds or recurrence of atrial arrhythmias Routine followup in 6 weeks requested.
[2018-01-21] MEDS: Levothyroxine Sodium 112 MCG TAB PO SCH (05:06)
[2018-01-21] MEDS: Acetaminophen 500 MG TAB PO PRN ×3 (05:11→22:04)
[2018-01-21] MEDS: traMADol HCl 50 MG TAB PO PRN ×3 (05:11→22:02)
[2018-01-21 05:40] LABS: #Eosinphils 0.1 thou/uL (0.0-0.7); #Lymphocytes 2.1 thou/uL (1.20-3.40); #Monocytes 1.1 thou/uL (0.11-0.59); #Neutrophils 7.8 thou/uL (1.40-6.50); %Basophils 0.2 % (0.0-1.0); %Eosinophils 0.5 % (0.0-10.0); %Monocytes 10.1 % (0.0-10.0); %Neutrophils 70.1 % (42.0-75.0); Hemoglobin 8.5 g/dL (12.0-16.0); Mean Corpuscular HGB CONC 32.6 g/dL (32.0-36.0); Mean Corpuscular Hemoglobin 31.7 pg (27.0-31.0); Mean Corpuscular Volume 97.2 fl (81.0-99.0); Platelet Count 316 thou/uL (130-400); RBC Distribution Width 13.7 % (11.5-14.5); Red Blood Cell (RBC) Count 2.69 mill/uL (4.20-5.40); White Blood Cell (WBC) Count 11.2 thou/uL (4.8-10.8)
[2018-01-21 05:50] LABS: Anion Gap 11 mmol/L (10-20); BUN (Urea Nitrogen) 28 mg/dL (9.8-20.1); Calc. Creatinine Clearance 42 mL/min (70-130); Calcium 8.3 mg/dL (7.8-10.44); Carbon Dioxide 25 mmol/L (23-31); Chloride 104 mmol/L (98-107); Estimated GFR-MDRD 61; Glucose 151 mg/dL (83-110); Potassium 3.8 mmol/L (3.5-5.1); Sodium 136 mmol/L (136-145)
[2018-01-21] MEDS: Apixaban 5 MG TAB PO SCH ×2 (10:14→21:32)
[2018-01-21] MEDS: Famotidine 20 MG TAB PO SCH (10:14)
[2018-01-21] MEDS: Ascorbic Acid 500 mg Chewable Tablet PO SCH (10:15)
[2018-01-21] MEDS: Ferrous Sulfate 325 MG TAB PO SCH ×2 (10:15→16:35)
[2018-01-21] MEDS: Lisinopril 20 MG TAB PO SCH (10:15)
[2018-01-21] MEDS: Carvedilol 25 MG TAB PO SCH ×2 (10:16→21:32)
[2018-01-21] MEDS: Vit A,C & E/Lutein/Minerals Tablet PO SCH (10:16)
[2018-01-21] MEDS: Furosemide 20 MG TAB PO SCH (10:16)
--- NOTE | 2018-01-21 14:37 | PDOC.PN ---
- Subjective Encounter Start Date: 01/21/18 Encounter Start Time: 11:00 Subjective: no sob or palp -: she feels better - Objective Resuscitation Status: Resuscitation Status FULL:Full Resuscitation MAR Reviewed: Yes Vital Signs & Weight: Vital Signs (12 hours) Temp Pulse Resp BP BP BP Pulse Ox 01/21/18 12:00 98.3 F 83 18 123/56 L 95 01/21/18 10:15 107/55 L 01/21/18 04:00 98.5 F 66 18 185/73 H 94 L Weight Admit Weight 128 lb 12.8 oz Weight 132 lb 14.4 oz I&O: 01/20/18 01/21/18 01/22/18 06:59 06:59 06:59 Intake Total 100 1680 Balance 100 1680 Result Diagrams: 01/21/18 05:06 01/21/18 05:06 Phys Exam - Physical Examination HEENT: PERRLA, moist MMs Neck: no JVD, supple Respiratory: no wheezing, no rales Cardiovascular: no significant murmur, no rub Gastrointestinal: soft, non-tender, positive bowel sounds Musculoskeletal: no edema, pulses present Neurological: non-focal, moves all 4 limbs Psychiatric: normal affect, A&O x 3 Dx/Plan (1) Atrial flutter Code(s): I48.92 - UNSPECIFIED ATRIAL FLUTTER Status: Resolved Qualifiers: Atrial flutter type: typical Qualified Code(s): I48.3 - Typical atrial flutter Comment: s/p ablation (2) CAD (coronary artery disease) Code(s): I25.10 - ATHSCL HEART DISEASE OF [place] CORONARY ARTERY W/O ANG PCTRS Status: Chronic Qualifiers: Coronary Disease-Associated Artery/Lesion type: bypass graft [place] vs. transplanted heart: [place] heart Associated angina: without angina Qualified Code(s): I25.810 - Atherosclerosis of coronary artery bypass graft(s) without angina pectoris (3) Prepatellar bursitis Code(s): M70.40 - PREPATELLAR BURSITIS, UNSPECIFIED KNEE Status: Acute Qualifiers: Laterality: right Qualified Code(s): M70.41 - Prepatellar bursitis, right knee (4) Dyslipidemia Code(s): E78.5 - HYPERLIPIDEMIA, UNSPECIFIED Status: Chronic (5) Chronic anemia Code(s): D64.9 - ANEMIA, UNSPECIFIED Status: Chronic (6) Hypothyroidism Code(s): E03.9 - HYPOTHYROIDISM, UNSPECIFIED Status: Chronic Qualifiers: Hypothyroidism type: unspecified Qualified Code(s): E03.9 - Hypothyroidism , unspecified (7) Hypertension Code(s): I10 - ESSENTIAL (PRIMARY) HYPERTENSION Status: Chronic Qualifiers: Hypertension type: essential hypertension Qualified Code(s): I10 - Essential (primary) hypertension - Plan pt is back in flutter from this am -: rate is controlled -: is on coreg, eliquis -: increase lasix to bid 40mg -: baljeet hose to LE to reduce swelling and blistering * . Review of Systems - Medications/Allergies Allergies/Adverse Reactions: Allergies Allergy/AdvReac Type Severity Reaction Status Date / Time levofloxacin Allergy Verified 11/03/17 09:29 Medications: Current Medications Acetaminophen (Tylenol) 1,000 mg PO Q6H PRN PRN Reason: PAIN/FEVER Last Admin: 01/21/18 05:11 Dose: 1,000 mg Apixaban (Eliquis) 2.5 mg PO BID [facility] Last Admin: 01/21/18 10:14 Dose: 2.5 mg Ascorbic Acid (Vitamin C) 1,000 mg PO DAILY [facility] Last Admin: 01/21/18 10:15 Dose: 1,000 mg Atorvastatin Calcium (Lipitor) 10 mg PO HS [facility] Last Admin: 01/20/18 20:40 Dose: 10 mg Bisacodyl (Dulcolax) 10 mg [place] DAILYPRN PRN PRN Reason: Constipation Carvedilol (Coreg) 12.5 mg PO BID [facility] Last Admin: 01/21/18 10:16 Dose: 12.5 mg Famotidine (Pepcid) 20 mg PO QAM [facility] Last Admin: 01/21/18 10:14 Dose: 20 mg Ferrous Sulfate (Feosol) 325 mg PO BID-WM [facility] Last Admin: 01/21/18 10:15 Dose: 325 mg Furosemide (Lasix) 20 mg PO DAILY [facility] Last Admin: 01/21/18 10:16 Dose: 20 mg Levothyroxine Sodium (Synthroid) 112 mcg PO 0600 [facility] Last Admin: 01/21/18 05:06 Dose: 112 mcg Lisinopril (Zestril) 20 mg PO DAILY [facility] Last Admin: 01/21/18 10:15 Dose: 20 mg Magnesium Hydroxide (Milk Of Magnesium) 30 ml PO DAILYPRN PRN PRN Reason: Constipation Multivitamins/Minerals (Ocuvite With Lutein) 1 tab PO DAILY [facility] Last Admin: 01/21/18 10:16 Dose: 1 tab Polyethylene Glycol (Miralax) 17 gm PO DAILYPRN PRN PRN Reason: CONSTIPATION Last Admin: 01/18/18 10:42 Dose: 17 gm Ropinirole HCl (Requip) 0.5 mg PO HS [facility] Last Admin: 01/20/18 20:40 Dose: 0.5 mg Sodium Chloride (Flush - Normal Saline) 10 ml IVF PRN PRN PRN Reason: Saline Flush Last Admin: 01/18/18 09:13 Dose: 10 ml Sodium Chloride (Flush - Normal Saline) 10 ml IVF Q12HR [facility] Last Admin: 01/21/18 10:17 Dose: Not Given Tramadol HCl (Ultram) 50 mg PO Q6H PRN PRN Reason: pain 1-5 Last Admin: 01/21/18 05:11 Dose: 50 mg
--- NOTE | 2018-01-21 18:30 | EKG ---
Test Reason : Blood Pressure : / mmHG Vent. Rate : 100 BPM Atrial Rate : 267 BPM P-R Int : 000 ms QRS Dur : 082 ms QT Int : 380 ms P-R-T Axes : 000 021 117 degrees QTc Int : 490 ms Atrial flutter with variable A-V block T wave abnormality, consider lateral ischemia Abnormal ECG When compared with ECG of 16-JAN-2018 19:32, (Unconfirmed) Serial changes of Anterior infarct Present Confirmed by PUNEET WELSH, SPillo (4) on 01/21/2018 6:29:57 PM Referred By: REBECCA Confirmed By:DR. Sheeba TEIXEIRA MD
--- NOTE | 2018-01-21 18:36 | EKG ---
Test Reason : Blood Pressure : / mmHG Vent. Rate : 073 BPM Atrial Rate : 073 BPM P-R Int : 206 ms QRS Dur : 080 ms QT Int : 402 ms P-R-T Axes : 093 002 110 degrees QTc Int : 442 ms Normal sinus rhythm T wave abnormality, consider lateral ischemia Abnormal ECG When compared with ECG of 19-JAN-2018 10:22, (Unconfirmed) Sinus rhythm has replaced Atrial flutter T wave inversion less evident in Lateral leads QT has shortened Confirmed by PUNEET WELSH, SPillo (4) on 01/21/2018 6:36:27 PM Referred By: ELIAN Confirmed By:DR. Sheeba TEIXEIRA MD
--- NOTE | 2018-01-21 18:36 | EKG ---
Test Reason : STAT Blood Pressure : / mmHG Vent. Rate : 081 BPM Atrial Rate : 081 BPM P-R Int : 202 ms QRS Dur : 084 ms QT Int : 392 ms P-R-T Axes : 099 -06 105 degrees QTc Int : 455 ms Normal sinus rhythm T wave abnormality, consider lateral ischemia Abnormal ECG When compared with ECG of 19-JAN-2018 17:12, (Unconfirmed) No significant change was found Confirmed by PUNEET WELSH, . SPillo (4) on 01/21/2018 6:36:37 PM Referred By: Confirmed By:DR. Sheeba TEIXEIRA MD
--- NOTE | 2018-01-21 18:37 | EKG ---
Test Reason : Blood Pressure : / mmHG Vent. Rate : 068 BPM Atrial Rate : 068 BPM P-R Int : 196 ms QRS Dur : 086 ms QT Int : 434 ms P-R-T Axes : 072 -08 105 degrees QTc Int : 461 ms Normal sinus rhythm Possible Anterior infarct , age undetermined Abnormal ECG When compared with ECG of 19-JAN-2018 19:52, (Unconfirmed) No significant change was found Confirmed by PUNEET WELSH, DR. SPillo (4) on 01/21/2018 6:37:12 PM Referred By: ELIAN Confirmed By:DR. Sheeba TEIXEIRA MD
--- NOTE | 2018-01-21 18:43 | PDOC.CTH ---
Cardiology Progress Note - Subjective She had an aflutter ablation yesterday but went into afib this morning. - Objective Vital Signs Temp Pulse Resp BP BP BP Pulse Ox 01/21/18 16:00 98.5 F 74 18 146/69 H 99 01/21/18 12:00 98.3 F 83 18 123/56 L 95 01/21/18 10:15 107/55 L Admit Weight 128 lb 12.8 oz Weight 132 lb 14.4 oz 01/20/18 01/21/18 01/22/18 06:59 06:59 06:59 Intake Total 100 1680 Balance 100 1680 - Physical Examination General/Neuro: alert & oriented x3, NAD Neck: no JVD present Lungs: unlabored respirations Heart: other: (Irregular) Abdomen: NT/ND Extremities: other: (no edema) - Telemetry Telemetry Rhythm: Afib HR 70's. - Labs Result Diagrams: 01/21/18 05:06 01/21/18 05:06 Troponin/CKMB CK-MB (CK-2) 3.9 ng/mL (0-6.6) 01/16/18 17:53 Troponin I 0.021 ng/mL (< 0.028) 01/16/18 17:53 - Assessment/Plan 1. Aflutter s/p ablation 2. Afib now, rte controlled. 3. CAD. PLAN: - Continue Eliquis for stroke prophylaxis. - Will start amiodarone and if she does not convert over the weekend she may need a DCCV on Tuesday.
[2018-01-21] MEDS: Atorvastatin Calcium 10 MG TAB PO SCH (21:31)
[2018-01-21] MEDS: rOPINIRole HCl 0.5 MG TAB PO SCH (21:32)
[2018-01-21] MEDS: Amiodarone 200 MG TAB PO SCH (21:57)
[2018-01-22] MEDS: Levothyroxine Sodium 112 MCG TAB PO SCH (06:19)
[2018-01-22 06:29] LABS: #Basophils 0.1 thou/uL (0.0-0.2); #Eosinphils 0.2 thou/uL (0.0-0.7); #Monocytes 1.3 thou/uL (0.11-0.59); #Neutrophils 6.2 thou/uL (1.40-6.50); %Basophils 0.7 % (0.0-1.0); %Eosinophils 2.3 % (0.0-10.0); %Lymphocytes 20.3 % (21.0-51.0); %Neutrophils 63.7 % (42.0-75.0); Hemoglobin 9.5 g/dL (12.0-16.0); Mean Corpuscular Hemoglobin 31.1 pg (27.0-31.0); Mean Corpuscular Volume 97.3 fl (81.0-99.0); Mean Platelet Volume 6.9 fL (7.4-10.4); Platelet Count 354 thou/uL (130-400); RBC Distribution Width 14.1 % (11.5-14.5); Red Blood Cell (RBC) Count 3.07 mill/uL (4.20-5.40); White Blood Cell (WBC) Count 9.7 thou/uL (4.8-10.8)
[2018-01-22 06:45] LABS: Anion Gap 11 mmol/L (10-20); BUN (Urea Nitrogen) 20 mg/dL (9.8-20.1); Calc. Creatinine Clearance 46 mL/min (70-130); Calcium 8.2 mg/dL (7.8-10.44); Carbon Dioxide 26 mmol/L (23-31); Chloride 105 mmol/L (98-107); Estimated GFR-MDRD 71; Glucose 105 mg/dL (83-110); Potassium 3.7 mmol/L (3.5-5.1); Sodium 138 mmol/L (136-145)
[2018-01-22] MEDS ORDERED: Furosemide 40 MG TAB PO SCH (09:00)
[2018-01-22] MEDS: Lisinopril 20 MG TAB PO SCH (09:50)
[2018-01-22] MEDS: Vit A,C & E/Lutein/Minerals Tablet PO SCH (09:50)
[2018-01-22] MEDS: Carvedilol 25 MG TAB PO SCH ×2 (09:51→21:35)
[2018-01-22] MEDS: Ascorbic Acid 500 mg Chewable Tablet PO SCH (09:51)
[2018-01-22] MEDS: Ferrous Sulfate 325 MG TAB PO SCH ×2 (09:51→17:28)
[2018-01-22] MEDS: Amiodarone 200 MG TAB PO SCH ×2 (09:52→21:35)
[2018-01-22] MEDS: Famotidine 20 MG TAB PO SCH (09:52)
[2018-01-22] MEDS: Apixaban 5 MG TAB PO SCH ×2 (09:52→21:35)
[2018-01-22] MEDS: traMADol HCl 50 MG TAB PO PRN ×2 (09:52→23:35)
[2018-01-22] MEDS: Acetaminophen 500 MG TAB PO PRN ×3 (09:54→23:35)
--- NOTE | 2018-01-22 12:00 | PDOC.PN ---
- Subjective Encounter Start Date: 01/22/18 Encounter Start Time: 09:15 Subjective: no c/o sob or palp - Objective Resuscitation Status: Resuscitation Status FULL:Full Resuscitation MAR Reviewed: Yes Vital Signs & Weight: Vital Signs (12 hours) Temp Pulse Resp BP BP BP Pulse Ox 01/22/18 09:50 135/63 01/22/18 04:00 96.6 F L 76 18 126/66 95 01/22/18 00:00 97.6 F 76 16 139/60 95 Weight Admit Weight 128 lb 12.8 oz Weight 128 lb 7 oz I&O: 01/21/18 01/22/18 01/23/18 06:59 06:59 06:59 Intake Total 1680 1440 Balance 1680 1440 Result Diagrams: 01/22/18 05:37 01/22/18 05:37 Phys Exam - Physical Examination HEENT: PERRLA, moist MMs Neck: no JVD, supple Respiratory: no wheezing, no rales Cardiovascular: no significant murmur, irregular Gastrointestinal: soft, non-tender, positive bowel sounds Musculoskeletal: no edema, pulses present Neurological: non-focal, moves all 4 limbs Psychiatric: A&O x 3 Dx/Plan (1) Atrial flutter Code(s): I48.92 - UNSPECIFIED ATRIAL FLUTTER Status: Acute Qualifiers: Atrial flutter type: typical Qualified Code(s): I48.3 - Typical atrial flutter Comment: s/p ablation (2) CAD (coronary artery disease) Code(s): I25.10 - ATHSCL HEART DISEASE OF [place] CORONARY ARTERY W/O ANG PCTRS Status: Chronic Qualifiers: Coronary Disease-Associated Artery/Lesion type: bypass graft [place] vs. transplanted heart: [place] heart Associated angina: without angina Qualified Code(s): I25.810 - Atherosclerosis of coronary artery bypass graft(s) without angina pectoris (3) Prepatellar bursitis Code(s): M70.40 - PREPATELLAR BURSITIS, UNSPECIFIED KNEE Status: Acute Qualifiers: Laterality: right Qualified Code(s): M70.41 - Prepatellar bursitis, right knee (4) Dyslipidemia Code(s): E78.5 - HYPERLIPIDEMIA, UNSPECIFIED Status: Chronic (5) Chronic anemia Code(s): D64.9 - ANEMIA, UNSPECIFIED Status: Chronic (6) Hypothyroidism Code(s): E03.9 - HYPOTHYROIDISM, UNSPECIFIED Status: Chronic Qualifiers: Hypothyroidism type: unspecified Qualified Code(s): E03.9 - Hypothyroidism , unspecified (7) Hypertension Code(s): I10 - ESSENTIAL (PRIMARY) HYPERTENSION Status: Chronic Qualifiers: Hypertension type: essential hypertension Qualified Code(s): I10 - Essential (primary) hypertension - Plan has recurrence of atrial flutter/fib post ablation, rate controlled -: is on amiodarone -: eliquis, coreg 12.5mg bid -: change lasix to daily -: Hb around 9g, to amb as tolerated * . Review of Systems - Medications/Allergies Allergies/Adverse Reactions: Allergies Allergy/AdvReac Type Severity Reaction Status Date / Time levofloxacin Allergy Verified 11/03/17 09:29 Medications: Current Medications Acetaminophen (Tylenol) 1,000 mg PO Q6H PRN PRN Reason: PAIN/FEVER Last Admin: 01/22/18 09:54 Dose: 1,000 mg Amiodarone HCl (Cordarone) 400 mg PO BID [facility] Last Admin: 01/22/18 09:52 Dose: 400 mg Apixaban (Eliquis) 2.5 mg PO BID [facility] Last Admin: 01/22/18 09:52 Dose: 2.5 mg Ascorbic Acid (Vitamin C) 1,000 mg PO DAILY [facility] Last Admin: 01/22/18 09:51 Dose: 1,000 mg Atorvastatin Calcium (Lipitor) 10 mg PO HS [facility] Last Admin: 01/21/18 21:31 Dose: 10 mg Bisacodyl (Dulcolax) 10 mg [place] DAILYPRN PRN PRN Reason: Constipation Carvedilol (Coreg) 12.5 mg PO BID [facility] Last Admin: 01/22/18 09:51 Dose: 12.5 mg Famotidine (Pepcid) 20 mg PO QAM [facility] Last Admin: 01/22/18 09:52 Dose: 20 mg Ferrous Sulfate (Feosol) 325 mg PO BID-WM [facility] Last Admin: 01/22/18 09:51 Dose: 325 mg Furosemide (Lasix) 40 mg PO 0900,1400 [facility] Last Admin: 01/22/18 09:52 Dose: 40 mg Levothyroxine Sodium (Synthroid) 112 mcg PO 0600 [facility] Last Admin: 01/22/18 06:19 Dose: 112 mcg Lisinopril (Zestril) 20 mg PO DAILY [facility] Last Admin: 01/22/18 09:50 Dose: 20 mg Magnesium Hydroxide (Milk Of Magnesium) 30 ml PO DAILYPRN PRN PRN Reason: Constipation Multivitamins/Minerals (Ocuvite With Lutein) 1 tab PO DAILY [facility] Last Admin: 01/22/18 09:50 Dose: 1 tab Polyethylene Glycol (Miralax) 17 gm PO DAILYPRN PRN PRN Reason: CONSTIPATION Last Admin: 01/18/18 10:42 Dose: 17 gm Ropinirole HCl (Requip) 0.5 mg PO HS [facility] Last Admin: 01/21/18 21:32 Dose: 0.5 mg Sodium Chloride (Flush - Normal Saline) 10 ml IVF PRN PRN PRN Reason: Saline Flush Last Admin: 01/18/18 09:13 Dose: 10 ml Sodium Chloride (Flush - Normal Saline) 10 ml IVF Q12HR [facility] Last Admin: 01/22/18 09:49 Dose: 10 ml Tramadol HCl (Ultram) 50 mg PO Q6H PRN PRN Reason: pain 1-5 Last Admin: 01/22/18 09:52 Dose: 50 mg
--- NOTE | 2018-01-22 17:22 | PDOC.CTH ---
Cardiology Progress Note - Subjective No new issues or concerns. She has been walking with CR and is doing well. Asymptomatic. - Objective Vital Signs BP 01/22/18 09:50 135/63 Admit Weight 128 lb 12.8 oz Weight 128 lb 7 oz 01/21/18 01/22/18 01/23/18 06:59 06:59 06:59 Intake Total 1680 1440 Balance 1680 1440 - Physical Examination General/Neuro: alert & oriented x3, NAD Neck: no JVD present Lungs: unlabored respirations Heart: other: (Irrgular) Abdomen: NT/ND Extremities: other: (no edema) - Telemetry Telemetry Rhythm: Afib HR 70's. - Labs Result Diagrams: 01/22/18 05:37 01/22/18 05:37 Troponin/CKMB CK-MB (CK-2) 3.9 ng/mL (0-6.6) 01/16/18 17:53 Troponin I 0.021 ng/mL (< 0.028) 01/16/18 17:53 - Assessment/Plan 1. Aflutter s/p ablation 2. Afib, rate controlled. 3. CAD. PLAN: - Continue Eliquis for stroke prophylaxis. - Continue amiodarone, hopefully she will convert. If she does not convert she may need a DCCV tomorrow, will defer to Dr. Dumnot tomorrow.
[2018-01-22] MEDS: rOPINIRole HCl 0.5 MG TAB PO SCH (21:35)
[2018-01-22] MEDS: Atorvastatin Calcium 10 MG TAB PO SCH (21:35)
[2018-01-23] MEDS: Levothyroxine Sodium 112 MCG TAB PO SCH (05:55)
[2018-01-23] MEDS: traMADol HCl 50 MG TAB PO PRN ×2 (05:55→12:37)
[2018-01-23] MEDS: Acetaminophen 500 MG TAB PO PRN ×2 (05:56→12:37)
[2018-01-23] MEDS ORDERED: Furosemide 40 MG TAB PO SCH (07:30)
[2018-01-23] MEDS: Amiodarone 200 MG TAB PO SCH (09:13)
[2018-01-23] MEDS: Carvedilol 25 MG TAB PO SCH (09:14)
[2018-01-23] MEDS: Famotidine 20 MG TAB PO SCH ×2 (09:14→09:15)
[2018-01-23] MEDS: Ferrous Sulfate 325 MG TAB PO SCH (09:15)
[2018-01-23] MEDS: Ascorbic Acid 500 mg Chewable Tablet PO SCH (09:15)
[2018-01-23] MEDS: Apixaban 5 MG TAB PO SCH (09:16)
[2018-01-23] MEDS: Vit A,C & E/Lutein/Minerals Tablet PO SCH (09:16)
[2018-01-23] MEDS: Lisinopril 20 MG TAB PO SCH (09:16)
--- NOTE | 2018-01-23 09:50 | PRG ---
DATE OF SERVICE: 01/23/2018 REFERRING PHYSICIAN: Dr. Dumont. SUBJECTIVE: Ms. Weaver seems to be doing well. Over the weekend she developed transient atrial fibrillation which prompted p.o. amiodarone loading. She converted back to sinus rhythm subsequently. She remains asymptomatic, rates were controlled. OBJECTIVE: VITAL SIGNS: Blood pressure 147/67, heart rate 54, respirations 16, temperature 97.9 degrees Fahrenheit. GENERAL: She is alert and oriented woman in no apparent distress. NECK: Supple. Jugular veins not distended. CHEST: Coarse without crackles. CARDIOVASCULAR: Heart sounds are regular to rate and rhythm. No murmur or gallop. ABDOMEN: Benign. Bowel sounds positive. EXTREMITIES: Groin sites without hematoma. Bilateral knees with minor swelling without much worsening. LABORATORY DATA: Hemoglobin 19.5, platelet count 354. White blood cell count 9.7. Electrolytes in normal range. AST and ALT of 19 and 18. Telemetry strips reveals transient atrial fibrillation, then returns to sinus rhythm since last night. ASSESSMENT AND PLAN: Ms. Weaver is a pleasant 87-year-old woman with history of persisting atrial flutter with rapid rates and also worsening LV function for which reason she underwent NICKO guided cavotricuspid isthmus ablation by me on the . Subsequently, she developed atrial fibrillation over the weekend, but now that was suppressed with amiodarone taper. She remains reasonably asymptomatic. PLAN: At this point: 1. Continue tapering amiodarone and continue low dose Eliquis. 2. Routine check in the office at which point we could consider coming off the amiodarone and switch her to rate control depending on her symptoms and LV dysfunction improvement. 3. At this point, I would hold off from a pulmonary venous isolation procedure. [facility]
--- NOTE | 2018-01-23 11:37 | PDOC.PN ---
- Subjective Encounter Start Date: 01/23/18 Encounter Start Time: 08:00 Subjective: no chest pain or palp -: feels better, is wearing baljeet hose with less edema in legs - Objective Resuscitation Status: Resuscitation Status FULL:Full Resuscitation MAR Reviewed: Yes Vital Signs & Weight: Vital Signs (12 hours) Temp Pulse Resp BP BP BP BP 01/23/18 11:23 97.5 F L 53 L 16 125/61 01/23/18 09:16 135/63 01/23/18 08:00 97.9 F 54 L 16 01/23/18 07:20 97.9 F 54 L 16 147/67 H 01/23/18 04:00 97.8 F 55 L 14 122/58 L Pulse Ox 01/23/18 11:23 95 01/23/18 09:16 01/23/18 08:00 95 01/23/18 07:20 95 01/23/18 04:00 94 L Weight Admit Weight 128 lb 12.8 oz Weight 129 lb 12.8 oz I&O: 01/22/18 01/23/18 01/24/18 06:59 06:59 06:59 Intake Total 1440 1560 Output Total 1420 Balance 1440 140 Result Diagrams: 01/22/18 05:37 01/22/18 05:37 Phys Exam - Physical Examination HEENT: PERRLA, moist MMs Neck: no JVD, supple Respiratory: no wheezing, no rales Cardiovascular: RRR, no significant murmur Gastrointestinal: soft, non-tender, positive bowel sounds Musculoskeletal: no edema, pulses present Neurological: non-focal, moves all 4 limbs Psychiatric: normal affect, A&O x 3 Dx/Plan (1) Atrial flutter Code(s): I48.92 - UNSPECIFIED ATRIAL FLUTTER Status: Acute Qualifiers: Atrial flutter type: typical Qualified Code(s): I48.3 - Typical atrial flutter Comment: s/p ablation (2) CAD (coronary artery disease) Code(s): I25.10 - ATHSCL HEART DISEASE OF [place] CORONARY ARTERY W/O ANG PCTRS Status: Chronic Qualifiers: Coronary Disease-Associated Artery/Lesion type: bypass graft [place] vs. transplanted heart: [place] heart Associated angina: without angina Qualified Code(s): I25.810 - Atherosclerosis of coronary artery bypass graft(s) without angina pectoris (3) Prepatellar bursitis Code(s): M70.40 - PREPATELLAR BURSITIS, UNSPECIFIED KNEE Status: Acute Qualifiers: Laterality: right Qualified Code(s): M70.41 - Prepatellar bursitis, right knee (4) Dyslipidemia Code(s): E78.5 - HYPERLIPIDEMIA, UNSPECIFIED Status: Chronic (5) Chronic anemia Code(s): D64.9 - ANEMIA, UNSPECIFIED Status: Chronic (6) Hypothyroidism Code(s): E03.9 - HYPOTHYROIDISM, UNSPECIFIED Status: Chronic Qualifiers: Hypothyroidism type: unspecified Qualified Code(s): E03.9 - Hypothyroidism , unspecified (7) Hypertension Code(s): I10 - ESSENTIAL (PRIMARY) HYPERTENSION Status: Chronic Qualifiers: Hypertension type: essential hypertension Qualified Code(s): I10 - Essential (primary) hypertension - Plan pt is back in sinus rhythm from 7am today -: is on amiodarone, eliquis and coreg -: dc plan per cardio advice -: amio taper per cardio/ep advice * . Review of Systems - Medications/Allergies Allergies/Adverse Reactions: Allergies Allergy/AdvReac Type Severity Reaction Status Date / Time levofloxacin Allergy Verified 11/03/17 09:29 Medications: Current Medications Acetaminophen (Tylenol) 1,000 mg PO Q6H PRN PRN Reason: PAIN/FEVER Last Admin: 01/23/18 05:56 Dose: 1,000 mg Amiodarone HCl (Cordarone) 400 mg PO BID [facility] Last Admin: 01/23/18 09:13 Dose: 400 mg Apixaban (Eliquis) 2.5 mg PO BID [facility] Last Admin: 01/23/18 09:16 Dose: 2.5 mg Ascorbic Acid (Vitamin C) 1,000 mg PO DAILY [facility] Last Admin: 01/23/18 09:15 Dose: 1,000 mg Atorvastatin Calcium (Lipitor) 10 mg PO HS [facility] Last Admin: 01/22/18 21:35 Dose: 10 mg Bisacodyl (Dulcolax) 10 mg AL DAILYPRN PRN PRN Reason: Constipation Carvedilol (Coreg) 12.5 mg PO BID [facility] Last Admin: 01/23/18 09:14 Dose: 12.5 mg Famotidine (Pepcid) 20 mg PO QAM [facility] Last Admin: 01/23/18 09:15 Dose: 20 mg Ferrous Sulfate (Feosol) 325 mg PO BID-WM [facility] Last Admin: 01/23/18 09:15 Dose: 325 mg Furosemide (Lasix) 40 mg PO DAILY-AC [facility] Last Admin: 01/23/18 09:15 Dose: 40 mg Levothyroxine Sodium (Synthroid) 112 mcg PO 0600 [facility] Last Admin: 01/23/18 05:55 Dose: 112 mcg Lisinopril (Zestril) 20 mg PO DAILY [facility] Last Admin: 01/23/18 09:16 Dose: 20 mg Magnesium Hydroxide (Milk Of Magnesium) 30 ml PO DAILYPRN PRN PRN Reason: Constipation Multivitamins/Minerals (Ocuvite With Lutein) 1 tab PO DAILY [facility] Last Admin: 01/23/18 09:16 Dose: 1 tab Polyethylene Glycol (Miralax) 17 gm PO DAILYPRN PRN PRN Reason: CONSTIPATION Last Admin: 01/18/18 10:42 Dose: 17 gm Ropinirole HCl (Requip) 0.5 mg PO HS [facility] Last Admin: 01/22/18 21:35 Dose: 0.5 mg Sodium Chloride (Flush - Normal Saline) 10 ml IVF PRN PRN PRN Reason: Saline Flush Last Admin: 01/18/18 09:13 Dose: 10 ml Sodium Chloride (Flush - Normal Saline) 10 ml IVF Q12HR [facility] Last Admin: 01/23/18 09:16 Dose: 10 ml Tramadol HCl (Ultram) 50 mg PO Q6H PRN PRN Reason: pain 1-5 Last Admin: 01/23/18 05:55 Dose: 50 mg
--- NOTE | 2018-01-23 12:19 | PDOC.CTH ---
Cardiology Progress Note - Subjective The pt seen and examined. No overnight events. No cardiac complaints. She converted back to SR since 01/22/18 @ 1730s. - Objective Vital Signs Temp Pulse Resp BP BP BP BP 01/23/18 11:23 97.5 F L 53 L 16 125/61 01/23/18 09:16 135/63 01/23/18 08:00 97.9 F 54 L 16 01/23/18 07:20 97.9 F 54 L 16 147/67 H 01/23/18 04:00 97.8 F 55 L 14 122/58 L Pulse Ox 01/23/18 11:23 95 01/23/18 09:16 01/23/18 08:00 95 01/23/18 07:20 95 01/23/18 04:00 94 L Admit Weight 128 lb 12.8 oz Weight 129 lb 12.8 oz 01/22/18 01/23/18 01/24/18 06:59 06:59 06:59 Intake Total 1440 1560 Output Total 1420 Balance 1440 140 - Physical Examination General/Neuro: alert & oriented x3 Neck: no JVD present Lungs: CTA Heart: RRR Abdomen: soft Extremities: other: (No edema) - Telemetry Telemetry Rhythm: SB 50s - Labs Result Diagrams: 01/22/18 05:37 01/22/18 05:37 Troponin/CKMB CK-MB (CK-2) 3.9 ng/mL (0-6.6) 01/16/18 17:53 Troponin I 0.021 ng/mL (< 0.028) 01/16/18 17:53 - Assessment/Plan 1. New onset Aflutter - S/p NICKO and Ablation on 01/19/[address] Landis. Converted back to SR on 01/22/18 @ 1730. On Amiodarone 400mg BID since 01/21/18 and Eliquis 2.5mg BID. 2. CAD with Hx of CABG x2 in 1998 - stable; On Statin, BBlocker and AMALIA; cont. monitor on tele 3. HTN - stable with current meds. Cont. monitor 4. Hyperlipidemia - on Statin 5. Hypothyroidism - on Levothyroxin; managed by PCP MAR reviewed * Echo on 01/16/18 showed EF 45-50%, normal Bilat. Atrium, mod MR, mild-mod TR. * S/p NICKO and Ablation on 01/19/[address] Landis * From Cardiac standpoint, the pt is stable to d/c home. The pt will f/u with Dr Dumont' office within 4 wks. Review of Systems - Review of Systems Constitutional: reports: no symptoms reported EENTM: reports: no symptoms reported Respiratory: reports: no symptoms reported Cardiac (ROS): reports: no symptoms reported ABD/GI: reports: no symptoms reported : reports: no symptoms reported
--- NOTE | 2018-01-23 13:59 | DIS ---
DATE OF ADMISSION: 01/17/2018 DATE OF DISCHARGE: 01/23/2018 DISCHARGE DISPOSITION: To home. PRIMARY DISCHARGE DIAGNOSES: Atrial flutter, status post cavotricuspid isthmus ablation, prepatellar bursitis, chronic atrial fibrillation, coronary artery disease, hypothyroidism, hypertension, dyslipidemia and chronic anemia. PROCEDURES DONE DURING HOSPITALIZATION: Echo with 2D Doppler done showed an ejection fraction of 45% to 50%. Transesophageal echo done on the showed no intracardiac clots, mild to moderate reduced left ventricular ejection fraction about 40% to 45% was noted. The patient has had electrophysiology evaluation done, which showed typical atrial flutter with successful ablation of the arrhythmia with cavotricuspid isthmus ablation. The patient has had a right knee aspiration done, which have shown no growth in the last 5 days. Right knee aspirate was negative for any crystals. LABORATORY DATA: Hemoglobin and hematocrit 9.5 and 30, platelet count 354, MCV is 97. Discharge BUN and creatinine is 20 and 0.7. BNP is 608. CRP of 7.20. TSH 1.78. DISCHARGE MEDICATIONS: Amiodarone 200 mg p.o. twice daily for 3 weeks, then 200 mg p.o. daily thereafter; Eliquis 2.5 mg p.o. twice daily; vitamin C 1000 mg p.o. daily; Coreg 12.5 mg p.o. twice daily; Pepcid 20 mg daily; ferrous sulfate 325 mg p.o. twice daily; Lasix 20 mg daily; levothyroxine 112 mcg p.o. daily; lisinopril 20 mg daily; MiraLax 17 grams daily; Pravachol 40 mg p.o. at bedtime; ropinirole 0.5 mg p.o. at bedtime and multivitamin 1 tab once daily. ALLERGIES: LEVAQUIN. INPATIENT CONSULTS: Dr. Dumont for Cardiology, Dr. Sabiha Sands for Electrophysiology and Dr. Epstein for Orthopedics. BRIEF COURSE DURING HOSPITALIZATION: The patient initially got admitted on the with patient complaining of right knee pain and was found to be in atrial flutter on arrival in the ER. She was admitted to telemetry. She has had consultation with Dr. Dumont for Cardiology and Dr. Epstein for Orthopedic Surgery. Her right knee erythema and swelling is due to prepatellar bursitis. The patient's atrial flutter was further worked up with transthoracic and transesophageal echo showing no thrombus in the cardiac chambers. She has had cavotricuspid isthmus ablation done. The patient was in sinus rhythm for 48 hours, but then reverted back into atrial flutter. She was then placed on amiodarone and from 7:00 a.m. this morning, she has been in sinus rhythm. Her heart rate is well controlled as well. Her right knee prepatellar bursitis is slowly resolving. The patient is ambulating in the room and in the hallway as well. She is hemodynamically stable. She has been cleared for discharge by Dr. Landis and Dr. Dumont this morning. She needs to continue amiodarone tapering as prescribed and Eliquis for 4 weeks post-ablation. If patient were to revert back into flutter or fib, she needs to further continue her Eliquis per Cardiology advice. She is hemodynamically stable and will be shortly discharged home. Please see a [id number] documentation on [facility] for the day of discharge. NORBERTO
[2018-01-23 15:52] VITALS: BP 123/81; TEMP 97.6
--- NOTE | 2018-01-23 18:24 | EKG ---
Test Reason : ROUTINE Blood Pressure : / mmHG Vent. Rate : 079 BPM Atrial Rate : 071 BPM P-R Int : 000 ms QRS Dur : 086 ms QT Int : 386 ms P-R-T Axes : 000 -06 139 degrees QTc Int : 442 ms Atrial Flutter with variable A-V block Anterolateral infarct (cited on or before 20-JAN-2018) Abnormal ECG When compared with ECG of 20-JAN-2018 06:36, Atrial Flutter has replaced Sinus rhythm Serial changes of Anterior infarct Present Confirmed by PUNEET WELSH, . S. ([id number]) on 01/23/2018 6:24:01 PM Referred By: LILIAM Confirmed By:DR. Sheeba TEIXEIRA MD
--- NOTE | 2018-02-23 15:04 | EKG ---
Test Reason : Blood Pressure : / mmHG Vent. Rate : 134 BPM Atrial Rate : 268 BPM P-R Int : 000 ms QRS Dur : 082 ms QT Int : 376 ms P-R-T Axes : 000 -13 136 degrees QTc Int : 561 ms Atrial flutter with 2:1 A-V conduction Abnormal ECG Confirmed by JOSE CISNEROS ([id number]), magazine editor [employer] ([id number]) on 02/23/2018 3:03:44 PM Referred By: BLAYNE Confirmed By:JOSE CISNEROS
--- NOTE | 2018-02-23 15:04 | EKG ---
Test Reason : Blood Pressure : / mmHG Vent. Rate : 093 BPM Atrial Rate : 264 BPM P-R Int : 000 ms QRS Dur : 076 ms QT Int : 376 ms P-R-T Axes : 000 -05 136 degrees QTc Int : 467 ms Atrial flutter with variable A-V block Anterior infarct , age undetermined Abnormal ECG Confirmed by JOSE CISNEROS ([id number]), medical transcription editor [employer] ([id number]) on 02/23/2018 3:03:47 PM Referred By: Confirmed By:JOSE CISNEROS
== END 2018-01-23 15:59 | disposition home health service (06) | DRG 274 ==
LOC: ERS 17:32 → 2NO 22:32
PROVIDERS: ADMIT Internal Medicine Infectious Disease; ATTEND Internal Medicine Infectious Disease
PROC: 0S9C3ZX Drainage of Right Knee Joint, Percutaneous Approach, Diagnostic (ICD-10-PCS; 2018-01-16)
PROC: B24BZZ4 Ultrasonography of Heart with Aorta, Transesophageal (ICD-10-PCS; principal; 2018-01-19)
PROC: 02583ZZ Destruction of Conduction Mechanism, Percutaneous Approach (ICD-10-PCS; 2018-01-19)
PROC: 0SJC3ZZ Inspection of Right Knee Joint, Percutaneous Approach (ICD-10-PCS; 2018-01-19)
DX: I48.92 Unspecified atrial flutter (principal); D50.0 Iron deficiency anemia secondary to blood loss (chronic); I07.1 Rheumatic tricuspid insufficiency; I34.0 Nonrheumatic mitral (valve) insufficiency; M70.41 Prepatellar bursitis, right knee; I48.2 Chronic atrial fibrillation; Z95.1 Presence of aortocoronary bypass graft; E03.9 Hypothyroidism, unspecified; E78.5 Hyperlipidemia, unspecified; I25.10 Atherosclerotic heart disease of native coronary artery without angina pectoris; Z79.01 Long term (current) use of anticoagulants; W19.XXXA Unspecified fall, initial encounter; M17.11 Unilateral primary osteoarthritis, right knee; Z96.641 Presence of right artificial hip joint
CPT/HCPCS: 36415; 70450; 71045; 76942; 80048; 80053; 80202; 82550; 82553; 83605; 83880; 84443; 84484; 85025; 85652; 86140; 87070; 87205; 89060; 93005; 93010; 93306; 93312; 93613; 93621; 93623; 93653; 96365; 96375; 96376; A4216; C1730; C1769; J1644; J1650; J2001; J2270; J2405; J2543; J2704; J3370; J7050